=== PATIENT | female | born 1975 | race Caucasian/White ===

== ENCOUNTER 2019-02-21 04:37 | Inpatient (IN) | payer OTHER ==
[2019-02-15 14:26] VITALS: BMI 26.0
--- NOTE | 2019-02-21 07:38 | HP ---
Admitting History and Physical - Admission Chief Complaint: Prolonged menses History of Present Illness: 43 yo Para 2, LMP 02/03/19, with h/o prolonged menses associated with leiomyoma of the uterus, is pre op for abdominal hysterectomy. History Source: Patient Limitations to Obtaining History: No Limitations - Past Medical History ...LMP: 02/03/19 ...: No ...Para: 2 - Past Surgical History Past Surgical History: Yes: None - Smoking History Smoking history: Never smoked Have you smoked in the past 12 months: No - Alcohol/Substance Use Hx Alcohol Use: No History of Substance Use: reports: None - Social History History of Recent Travel: No Home Medications - Allergies Allergies/Adverse Reactions: Allergies Allergy/AdvReac Type Severity Reaction Status Date / Time No Known Drug Allergies Allergy Verified 02/21/19 06:40 - Home Medications Home Medications: Ambulatory Orders Ferrous Sulfate 325 mg PO DAILY 02/15/19 Losartan 50Mg/Hctz 12.5MG [Hyzaar -] 1 tab PO DAILY 02/15/19 Family Medical History Family History: Unremarkable Review of Systems - Review of Systems Constitutional: reports: No Symptoms Eyes: reports: No Symptoms HENT: reports: No Symptoms Neck: reports: No Symptoms Cardiovascular: reports: No Symptoms Respiratory: reports: No Symptoms Gastrointestinal: reports: No Symptoms Genitourinary: reports: No Symptoms Breasts: reports: No Symptoms Reported Musculoskeletal: reports: No Symptoms Neurological: reports: No Symptoms Psychiatric: reports: No Symptoms Pain Intensity: 0 Physical Examination Vital Signs: Vital Signs Temperature 98.0 F 02/21/19 06:36 Pulse Rate 76 02/21/19 06:36 Respiratory Rate 16 02/21/19 06:36 Blood Pressure 98/63 02/21/19 06:37 O2 Sat by Pulse Oximetry (%) 99 02/21/19 06:35 Constitutional: Yes: Well Nourished Eyes: Yes: Conjunctiva Clear HENT: Yes: Atraumatic Neck: Yes: Supple Cardiovascular: Yes: Regular Rate and Rhythm Respiratory: Yes: Regular Gastrointestinal: Yes: Normal Bowel Sounds Musculoskeletal: Yes: WNL Extremities: Yes: WNL Neurological: Yes: Alert, Oriented ...Motor Strength: WNL Psychiatric: Yes: Alert, Oriented Problem List - Problems (1) Leiomyoma of body of uterus Problems reviewed: Yes Code(s): D25.9 - LEIOMYOMA OF UTERUS, UNSPECIFIED Assessment/Plan Menorrhagia Leiomyoma of the uterus Consent signed Anesthesia to see patient
[2019-02-21] MEDS ORDERED: MIDAZOLAM HCL 2 MG/2 ML SINGLE DOSE VIAL ONE ×2 (07:41)
[2019-02-21] MEDS ORDERED: fentaNYL CITRATE 250 MCG/5 ML VIAL ONE (07:42)
[2019-02-21] MEDS ORDERED: ROCURONIUM BROMIDE 50 MG/5 ML SYRINGE ONE (07:43)
[2019-02-21] MEDS ORDERED: ceFAZolin SODIUM 1 GM VIAL IVPB ONE (07:44)
[2019-02-21] MEDS ORDERED: PROPOFOL 20 ML ONE ×2 (07:44)
[2019-02-21] MEDS ORDERED: BUPIVACAINE HCL/PF 0.5% (5 MG/ML) 30 ML VIAL IJ ONE ×3 (08:15→09:15)
[2019-02-21] MEDS ORDERED: BENZOIN TINCTURE SWABSTICK TP ONE (09:14)
[2019-02-21] MEDS ORDERED: NEOSTIGMINE METHYLSULFATE 0.5 MG/ML - 10 ML MDV ONE (09:14)
[2019-02-21] MEDS ORDERED: LIDOCAINE HCL/PF 2% SDV 5ML VIAL ONE (09:15)
[2019-02-21] MEDS ORDERED: ceFAZolin SODIUM 1 GM VIAL ONE (09:15)
[2019-02-21] MEDS ORDERED: DEXAMETHASONE SOD PHOSPHATE 4 MG/1 ML VIAL ONE (09:15)
[2019-02-21] MEDS ORDERED: KETOROLAC TROMETHAMINE 30 MG/1 ML VIAL ONE (09:15)
[2019-02-21] MEDS ORDERED: GLYCOPYRROLATE 0.2 MG/1 ML VIAL ONE (09:15)
[2019-02-21] MEDS ORDERED: IBUPROFEN 800 MG/8 ML IJ IVPB PRN ×2 (09:32→13:40)
--- NOTE | 2019-02-21 09:40 | OP ---
Operative Note - Note: Operative Date: 02/21/19 Pre-Operative Diagnosis: Menorhagia / Leiomatous uterus Operation: Subtotal hysterectomy / Bilateral salpingectomy Findings: Enlarged uterus c/w 12 weeks size Normal tubes and ovaries Post-Operative Diagnosis: Same as Pre-op Surgeon: Lorna Alfredo Marketing Sales Manager: Frank Le Anesthesia: General Specimens Removed: Uterus / Tubes Estimated Blood Loss (mls): 150
[2019-02-21] MEDS ORDERED: DEXTROSE 5%-LACTATED RINGERS 1,000 ML IV SCH (09:45)
[2019-02-21] MEDS ORDERED: PROMETHAZINE HCL 25 MG/1 ML VIAL IVPB PRN (09:46)
[2019-02-21] MEDS ORDERED: DEXAMETHASONE SOD PHOSPHATE 4 MG/1 ML VIAL IVPUSH PRN (09:46)
[2019-02-21] MEDS ORDERED: ONDANSETRON 4 MG/2 ML VIAL IVPUSH PRN ×2 (09:46)
[2019-02-21] MEDS ORDERED: HYDROmorphone *PCA* 10MG/50ML DISP.SYRIN PCA SCH (10:00)
[2019-02-21] MEDS ORDERED: LACTATED RINGERS SOLUTION 1,000 ML IV SCH (10:00)
--- NOTE | 2019-02-21 10:16 | PN ---
Progress Note (short form) - Note Progress Note: I assisted Dr. Alfredo at [facility] and BS for the entirety of the case.
[2019-02-21] MEDS ORDERED: IBUPROFEN 800 MG/8 ML IJ IVPB ONE ×2 (10:22→10:28)
[2019-02-21] MEDS ORDERED: HYDROmorphone *PCA* 10MG/50ML DISP.SYRIN ONE (11:00)
[2019-02-21] MEDS ORDERED: HYDROmorphone *PCA* 10MG/50ML DISP.SYRIN PCA ONE (11:17)
[2019-02-22] MEDS ORDERED: FLU VACCINE QUAD 60 MCG/0.5 ML (MDV 19-20) IM ONE (06:34)
--- NOTE | 2019-02-22 07:20 | PN ---
Progress Note (short form) - Note Progress Note: Anesthesia Post Op Note Pt s/p GA w/ ERP ANALYST for RICKI Pt denies n/v, tolerating po denies puritis Anderson in situ recommend d/c ERP ANALYST convert to po pain regimen VSS no apparent anesthesia complications Stephanie Posey.
--- NOTE | 2019-02-22 07:34 | PN ---
Progress Note (SOAP) - Subjective Chief Complaint: Pt with mild pain otherwise doing well - Current Medications Current Medications: Active Medications Dexamethasone Sodium Phosphate (Decadron Injection -) 4 mg IVPUSH ONCE PRN PRN Reason: NAUSEA AND/OR VOMITING Diphenhydramine HCl (Benadryl Injection -) 12.5 mg IVPUSH ONCE PRN PRN Reason: FOR ITCHING Last Admin: 02/22/19 01:30 Dose: 12.5 mg Fentanyl (Sublimaze Injection -) 50 mcg IVPUSH [id number] PRN PRN Reason: PAIN-PACU ORDER X 4 DOSES ONLY Hydromorphone HCl (Hydromorphone 10 Mg/50 Ml-Ns) 10 mg CHILD NUTRITION ASSISTANT CHILD NUTRITION ASSISTANT RITO; Protocol Stop: 02/22/19 09:59 Dextrose/Lactated Ringer's (D5-Lr -) 1,000 mls @ 125 mls/hr IV ASDIR RITO Lactated Ringer's (Lactated Ringers Solution) 1,000 mls @ 125 mls/hr IV ASDIR RITO Ibuprofen (Caldolor Injection -) 800 mg IVPB Q8H PRN PRN Reason: PAIN LEVEL 4 - 6 Influenza Virus Vaccine Quadrival (Fluarix Quad [id number] Syringe) 60 mcg IM .ONCE ONE Stop: 02/22/19 10:01 Ondansetron HCl (Zofran Injection) 4 mg IVPUSH Q6H PRN PRN Reason: NAUSEA AND/OR VOMITING Ondansetron HCl (Zofran Injection) 4 mg IVPUSH Q4H PRN PRN Reason: NAUSEA AND/OR VOMITING Promethazine HCl (Phenergan Injection -) 12.5 mg IVPB Q6H PRN PRN Reason: NAUSEA AND/OR VOMITING - Objective Vital Signs: Vital Signs Temperature 98.1 F 02/22/19 05:42 Pulse Rate 79 02/22/19 05:42 Respiratory Rate 18 02/22/19 05:42 Blood Pressure 111/58 L 02/22/19 05:42 O2 Sat by Pulse Oximetry (%) 98 02/21/19 20:00 Constitutional: Yes: Well Nourished, No Distress Gastrointestinal: Yes: WNL, Soft Wound/Incision: Yes: Dressing Dry and Intact Neurological: Yes: WNL, Alert, Oriented Problem List - Problems (1) H/O hysterectomy for benign disease Code(s): Z90.710 - ACQUIRED ABSENCE OF BOTH CERVIX AND UTERUS Assessment/Plan POD1 stable Plan Continue present management
[2019-02-22] MEDS ORDERED: FLU VACC QS2019-20(6MOS UP)/PF 60 MCG/0.5 ML SYRINGE IM ONE (10:00)
[2019-02-22] MEDS: oxyCODONE HCL 5 MG TABLET PO PRN ×3 (13:06→20:35)
[2019-02-22] MEDS: LOSARTAN 50MG/HCTZ 12.5MG 1 TAB (FP) PO SCH (15:37)
--- NOTE | 2019-02-22 17:01 | PATH ---
Surgical Pathology Report Patient Name: SANDEE OBRIEN [facility]. Rec. #: [id number] /Age/Gender: 1975 (Age: 43) / F Account: [id number] Location: [facility] OBS/REHAB AID Taken: 02/21/2019 Received: 02/21/2019 Reported: 02/22/2019 Physicians: Lorna Alfredo M.D. Specimen(s) Received A: UTERUS, PORTION OF CERVIX B: LEFT FALLOPIAN TUBE C: RIGHT FALLOPIAN TUBE Clinical History Menorrhagia, leiomyoma of uterus Final Diagnosis A. UTERUS, PORTION OF CERVIX, ABDOMINAL SUPRACERVICAL HYSTERECTOMY: 200 G UTERUS. PROLIFERATIVE ENDOMETRIUM. MYOMETRIUM WITH ADENOMYOSIS. PORTION OF ENDOCERVIX WITHOUT SIGNIFICANT PATHOLOGIC FINDINGS. B. FALLOPIAN TUBE, LEFT, SALPINGECTOMY: FALLOPIAN TUBE WITH FOCAL ENDOSALPINGOSIS (INCLUDING FIMBRIATED END AND FULL LUMINAL PORTION). C. FALLOPIAN TUBE, RIGHT, SALPINGECTOMY: FALLOPIAN TUBE WITH FOCAL ENDOSALPINGOSIS AND VASCULAR CONGESTION (INCLUDING FIMBRIATED END AND FULL LUMINAL PORTION). Electronically Signed Mela Moon M.D. Gross Description A. Received in formalin labeled "uterus and portion of cervix," is a 200 g uterus with a portion of attached cervix and no attached adnexa. The specimen measures 9.8 cm from superior to inferior, 6.6 cm from left to right and 6.3 cm from anterior to posterior. The serosa is pink-spencer and smooth. The portion of attached cervix measures 1.8 cm in length. There is no ectocervix present. The endocervix is unremarkable. The endometrial cavity measures 5.2 cm in length and 3.5 cm from cornu to cornu. The endometrium is spencer and lush, measuring up to 0.4 cm in thickness. The myometrium is spencer, firm and trabeculated, consistent with adenomyosis. The myometrium displays multiple cystic structures containing brown blood. The myometrium averages 3.2 cm in thickness. Building Trades Teacher sections are submitted in 7 cassettes as follows: 1-cervical stump margin of resection; 2-anterior and posterior cervix; 6-2-xeghcazqmkboni; 7-additional myometrium with blood-filled cysts. B. Received in formalin labeled "left fallopian tube," is a 3.5 cm in length fimbriated fallopian tube. The outer surface is spencer-pink and smooth. Sectioning reveals unremarkable lumen. Building Trades Teacher sections are submitted in 2 cassettes as follows: 1-fimbria; 2-cross sections of fallopian tube. C. Received in formalin labeled "right fallopian tube," is a 2.5 cm in length fimbriated fallopian tube. The outer surface is spencer-pink and smooth. Sectioning reveals an unremarkable lumen. Building Trades Teacher sections are submitted in 2 cassettes as follows: 1-fimbria; 2-cross sections of fallopian tube. 02/21/2019 [facility]02/21/2019
[2019-02-22] MEDS: ACETAMINOPHEN 325 MG TABLET (FP) PO PRN ×2 (17:08→20:36)
[2019-02-22] MEDS ORDERED: PCA PUMP KEY 1 EACH EACH ONE (17:20)
[2019-02-23] MEDS: oxyCODONE HCL 5 MG TABLET PO PRN ×2 (01:10→08:06)
[2019-02-23] MEDS: ACETAMINOPHEN 325 MG TABLET (FP) PO PRN ×2 (01:11→08:05)
[2019-02-23 08:48] VITALS: BP 118/71; PULSE 69; TEMP 98.2
[2019-02-23] MEDS: LOSARTAN 50MG/HCTZ 12.5MG 1 TAB (FP) PO SCH (09:44)
--- NOTE | 2019-02-23 10:06 | DS ---
Physical Examination Vital Signs: Vital Signs Temperature 98.2 F 02/23/19 08:47 Pulse Rate 69 02/23/19 08:47 Respiratory Rate 20 02/23/19 08:47 Blood Pressure 118/71 02/23/19 08:47 O2 Sat by Pulse Oximetry (%) 98 02/22/19 22:00 Constitutional: No: No Distress Eyes: Yes: Conjunctiva Clear HENT: Yes: Atraumatic Neck: Yes: Supple Respiratory: Yes: Regular Gastrointestinal: Yes: Normal Bowel Sounds Breast(s): Yes: WNL Musculoskeletal: Yes: WNL Extremities: No: Calf Tenderness Wound/Incision: Yes: Clean/Dry, Steri Strips (in place) Neurological: Yes: Alert, Oriented ...Motor Strength: WNL Psychiatric: Yes: Alert, Oriented Discharge Summary Problems reviewed: Yes Reason For Visit: MENORRHAGIA/LEIOMYOMA OF UTERUS Current Active Problems H/O hysterectomy for benign disease (Acute) Leiomyoma of body of uterus (Acute) Procedures: Principal: Abdominal hysterectomy / Bilateral salpingectomy Hospital Course: Routine post op care No blood transfusion, no additional dosage of antibiotic required. Health Concerns: Thromboembolic event Plan of Treatment: Analgesia Ambulation Wound care F/U with MD in 2 weeks Goals: Resume regular activities in 2-4 weeks Condition: Good - Instructions Diet, Activity, Other Instructions: Regular diet No driving, no lifting x 3 weeks F/U with MD in 2 weeks Disposition: HOME - Home Medications Comprehensive Discharge Medication List: Ambulatory Orders Ferrous Sulfate 325 mg PO DAILY 02/15/19 Losartan 50Mg/Hctz 12.5MG [Hyzaar -] 1 tab PO DAILY 02/15/19
--- NOTE | 2019-03-07 16:19 | OP ---
DATE OF OPERATION: 02/21/2019 PREOPERATIVE DIAGNOSIS: Menorrhagia and leiomyoma of the uterus. POSTOPERATIVE DIAGNOSIS: Menorrhagia and leiomyoma of the uterus. PROCEDURE: Subtotal hysterectomy and bilateral salpingectomy. SURGEON: Lorna Alfredo MD FRONT SIGHT ATTACHER: Frank Le MD ANESTHESIA: General. COMPLICATIONS: None. ESTIMATED BLOOD LOSS: 150 mL. DESCRIPTION OF PROCEDURE: Patient was taken to the operating room where general anesthesia was administered. Patient was then prepped and draped in proper sterile fashion. A Pfannenstiel skin incision was made approximately 2 cm above the pubic symphysis and extended sharply to the rectus fascia. The fascia was then incised bilaterally with the Bovie cautery and the muscles of the anterior abdominal wall were then in the midline by sharp and blunt dissection. The peritoneum was grasped between 2 pickups, elevated, and entered sharply with the Metzenbaum scissors. The pelvis was then examined, and the uterus was exteriorized. The bowel a packed with moist laparotomy sponges. Two pean clamps were placed over the cornua and used for retraction. The round ligaments on both sides were clamped using the LigaSure, burned, and cut. The anterior lip of the broad ligament was then incised along the bladder reflection through the midline from both sides. The bladder was then gently dissected off the lower uterine segment and cervix with a sponge stick. Then the utero-ovarian ligament on both sides were then clamped using the LigaSure device , burned, and cut. Hemostasis was visualized. The uterine arteries were skeletonized bilaterally, clamped, and cut using the LigaSure device. Again, hemostasis was assured. Then the uterosacral ligaments were then clamped and cut. The uterus was then amputated off the cervix using the Bovie cautery. The cervical stump was then closed with pdooiq-[id number]-fchoa stitches of 0 Vicryl. Again hemostasis was obtained. Both tubes were then clamped with the ligasure device and cut. Homostasis was assured. The pelvis was then copiously irrigated with warm, normal saline. All laparotomy sponges and instruments were removed from the abdomen, and Interceed was placed over the cervical stump. First the peritoneum was closed using 2-0 Biosyn. The fascia was reapproximated using 0 Vicryl in a running fashion, and the skin was closed in a subcuticular fashion using 3-0 Vicryl. Patient tolerated procedure well. Patient was then taken to PACU in stable condition. PATHOLOGY: Uterus and tubes. Alina MATSON/[id number] MTDD
== END 2019-02-23 12:25 | disposition home or self-care (01) | DRG 519 ==
LOC: JSAMEDAYSX 04:37 → J3W 12:40
PROVIDERS: ADMIT Obstetrics & Gynecology; ATTEND Obstetrics & Gynecology
PROC: 0UT70ZZ Resection of Bilateral Fallopian Tubes, Open Approach (ICD-10-PCS; 2019-02-21)
PROC: 0UT90ZL Resection of Uterus, Supracervical, Open Approach (ICD-10-PCS; principal; 2019-02-21 08:13)
DX: D25.9 Leiomyoma of uterus, unspecified (principal); N92.0 Excessive and frequent menstruation with regular cycle
CPT/HCPCS: 84703; 86850; 86900; 86901; 88302-TC; 88305-TC; 90686; 94010; 94760

== ENCOUNTER 2019-03-27 12:10 | Inpatient (IN) | payer OTHER ==
[2019-03-27] MEDS ORDERED: KETOROLAC TROMETHAMINE 30 MG/1 ML VIAL IVPUSH ONE (12:46)
[2019-03-27] MEDS ORDERED: ONDANSETRON 4 MG/2 ML VIAL IVPUSH ONE (12:46)
[2019-03-27] MEDS ORDERED: KETOROLAC TROMETHAMINE 30 MG/1 ML VIAL ONE (13:18)
[2019-03-27] MEDS ORDERED: ONDANSETRON 4 MG/2 ML VIAL ONE (13:19)
[2019-03-27] MEDS ORDERED: SODIUM CHLORIDE 1,000 ML IV STA ×2 (13:23→17:26)
[2019-03-27 13:35] LABS: BASO % 0.5 % (0-2.0); EOS % 0.2 % (0-4.5); HEMOGLOBIN 13.8 GM/dL (10.7-15.3); LYMPH % 8.1 % (8-40); MCH 30.6 pg (25.7-33.7); MCHC 32.8 g/dl (32.0-36.0); MEAN CELL VOLUME 93.3 fl (80-96); MEAN PLT VOLUME 9.3 fl (7.5-11.1); MONO % 3.8 % (3.8-10.2); NEUT % 87.4 % (42.8-82.8); PLATELET COUNT 253 K/MM3 (134-434); RDW 12.8 % (11.6-15.6); WHITE BLOOD COUNT 18.1 K/mm3 (4.0-10.0)
[2019-03-27 13:49] LABS: EPI CELLS 1.8 /HPF (0-5/HPF); HYALINE CASTS 23 /lpf (0-8); URINE APPEARANCE CLEAR; URINE BACTERIA 196.7 /hpf (NEGATIVE); URINE BILIRUBIN NEGATIVE (NEGATIVE); URINE COLOR YELLOW; URINE GLUCOSE (UA) NEGATIVE (NEGATIVE); URINE KETONE NEGATIVE (NEGATIVE); URINE LEUK ESTERASE 1+ (NEGATIVE); URINE NITRITE NEGATIVE (NEGATIVE); URINE PROTEIN 2+ (NEGATIVE); URINE RBC 11 /hpf (0-4); URINE UROBILINOGEN 0.2 mg/dL (0.2-1.0); URINE WBC 33 /hpf (0-5)
[2019-03-27 13:54] LABS: BILIRUBIN,TOTAL 0.2 mg/dL (0.2-1); CALCIUM 9.6 mg/dL (8.5-10.1); CREATININE 0.8 mg/dL (0.55-1.3); POTASSIUM 3.8 mmol/L (3.5-5.1); TOT PROT 8.4 g/dl (6.4-8.2)
--- NOTE | 2019-03-27 14:27 | PDOC ---
History of Present Illness - General History Source: Patient Exam Limitations: No Limitations - History of Present Illness Travel History: No Initial Comments: 03/27/19 15:07 43-year-old female with past medical history of hysterectomy done on February 21. Patient with urinary discomfort and frequency. Patient also complaining of mild generalized weakness and lower abdominal cramping greater to the right suprapubic right lower quadrant along with right flank and right CVA tenderness. Patient denies history of gallstones renal colic, recent travel, recent illness. Timing/Duration: reports: constant Quality: reports: moderate Abdominal Pain Onset Location: reports: RLQ, suprapubic, flank Pain Radiation: reports: back Activities at Onset: reports: none Aggravating Factors: improves with: None Alleviating Factors: improves with: None <Sujata Buckley - Last Filed: 03/30/19 14:16> <Osiris Nicholas - Last Filed: 04/04/19 21:44> - General Chief Complaint: Pain Stated Complaint: LOWER STOMACH/BACK PAIN Time Seen by Provider: 03/27/19 12:44 Past History - Travel Traveled outside of the country in the last 30 days: No Close contact w/someone who was outside of country & ill: No - Past Medical History Anemia: Yes Asthma: No Cancer: No Cardiac Disorders: No CVA: No COPD: No CHF: No Dementia: No Diabetes: No GI Disorders: No Disorders: No HTN: Yes (? not on meds) Hypercholesterolemia: No Liver Disease: No Seizures: No Thyroid Disease: No - Surgical History Abdominal Surgery: No Appendectomy: No Cardiac Surgery: No Cholecystectomy: No Lung Surgery: No Neurologic Surgery: No Orthopedic Surgery: No - Psycho Social/Smoking Cessation Hx Smoking History: Never smoked Have you smoked in the past 12 months: No Hx Alcohol Use: No Drug/Substance Use Hx: No Substance Use Type: None Hx Substance Use Treatment: No Patient Lives Alone: No Lives with/in: spouse/SO <Sujata Buckley - Last Filed: 03/30/19 14:16> <Osiris Nicholas - Last Filed: 04/04/19 21:44> - Past Medical History Allergies/Adverse Reactions: Allergies Allergy/AdvReac Type Severity Reaction Status Date / Time No Known Drug Allergies Allergy Verified 03/27/19 12:22 Home Medications: Ambulatory Orders Losartan 50Mg/Hctz 12.5MG [Hyzaar -] 1 tab PO DAILY 02/15/19 Cephalexin [Keflex] 500 mg PO TID #10 capsule 04/03/19 Review of Systems - Review of Systems Able to Perform ROS?: Yes Constitutional: No: Symptoms Reported HEENTM: No: Symptoms Reported Respiratory: No: Symptoms reported ABD/GI: Yes: Nausea, Vomiting, Abdominal cramping. No: Poor Appetite, Poor Fluid Intake : Yes: Dysuria, Urgency Musculoskeletal: Yes: Back Pain Integumentary: No: Symptoms Reported Neurological: No: Symptoms reported Endocrine: No: Symptoms Reported Hematologic/Lymphatic: No: Symptoms Reported <Sujata Buckley - Last Filed: 03/30/19 14:16> *Physical Exam - Vital Signs Last Vital Signs Temp Pulse Resp BP Pulse Ox 97.2 F L 69 18 124/73 100 03/27/19 12:23 03/27/19 12:23 03/27/19 12:23 03/27/19 12:23 03/27/19 12:23 - Physical Exam General Appearance: Yes: Nourished, Appropriately Dressed. No: Apparent Distress HEENT: positive: EOMI, MERCEDEZ, TMs Normal, Pharynx Normal. negative: Pale Conjunctivae Neck: positive: Supple Respiratory/Chest: positive: Lungs Clear, Normal Breath Sounds. negative: Respiratory Distress Cardiovascular: positive: Regular Rhythm, Regular Rate. negative: Murmur Gastrointestinal/Abdominal: positive: Soft, Tenderness (Right suprapubic right lower quadrant right flank) Musculoskeletal: positive: CVA Tenderness (R) (mild) Extremity: positive: Normal Inspection Integumentary: positive: Normal Color, Warm, Moist Neurologic: positive: Motor Strength 5/5 (ambulatory) <Sujata Buckley - Last Filed: 03/30/19 14:16> - Vital Signs Last Vital Signs Temp Pulse Resp BP Pulse Ox 98.0 F 66 18 116/67 98 04/03/19 17:38 04/03/19 17:38 04/03/19 17:38 04/03/19 17:38 04/03/19 09:00 <Osiris Nicholas - Last Filed: 04/04/19 21:44> ED Treatment Course - LABORATORY CBC & Chemistry Diagram: 03/30/19 06:20 03/30/19 06:20 - ADDITIONAL ORDERS Additional order review: Laboratory Results 03/27/19 03/27/19 03/27/19 13:20 13:20 13:15 Sodium 138 Potassium 3.8 Chloride 105 Carbon Dioxide 25 Anion Gap 8 BUN 17.0 Creatinine 0.8 Est GFR (CKD-EPI)AfAm 104.65 Est GFR (CKD-EPI)NonAf 90.30 Random Glucose 134 H Calcium 9.6 Total Bilirubin 0.2 AST 31 ALT 50 Alkaline Phosphatase 101 Total Protein 8.4 H Albumin 4.0 Urine Color Yellow Urine Appearance Clear Urine pH 5.0 Ur Specific [place] 1.025 Urine Protein 2+ H Urine Glucose (UA) Negative Urine Ketones Negative Urine Blood Trace Urine Nitrite Negative Urine Bilirubin Negative Urine Urobilinogen 0.2 Ur Leukocyte Esterase 1+ H Urine WBC (Auto) 33 Urine RBC (Auto) 11 Urine Casts (Auto) 23 U Epithel Cells (Auto) 1.8 Urine Bacteria (Auto) 196.7 Urine HCG, Qual Negative 03/27/19 13:15 RBC 4.50 MCV 93.3 MCHC 32.8 RDW 12.8 D MPV 9.3 Neutrophils % 87.4 H D Lymphocytes % 8.1 D Monocytes % 3.8 Eosinophils % 0.2 D Basophils % 0.5 - RADIOLOGY Radiology Studies Ordered: Category Date Time Status PELVIC / BLADDER US [US] Stat Ultrasound 03/27/19 12:45 Ordered - Medications Given in the ED: ED Medications Discontinued Medications Generic Name Dose Route Start Last Admin Trade Name Freq PRN Reason Stop Dose Admin Sodium Chloride 1,000 mls @ 1,000 mls/hr 03/27/19 13:23 03/27/19 13:25 Normal Saline - IV 03/27/19 14:22 1,000 mls/hr ASDIR STA Administration Ketorolac Tromethamine 30 mg 03/27/19 12:46 03/27/19 13:19 Toradol Injection - IVPUSH 03/27/19 12:47 30 mg ONCE ONE Administration Ondansetron HCl 4 mg 03/27/19 12:46 03/27/19 13:19 Zofran Injection IVPUSH 03/27/19 12:47 4 mg ONCE ONE Administration <Sujata Buckley - Last Filed: 03/30/19 14:16> - LABORATORY CBC & Chemistry Diagram: 04/01/19 18:42 04/02/19 06:48 - ADDITIONAL ORDERS Additional order review: 03/27/19 17:30 Blood Culture - Final Blood - Peripheral Venous Non Lactose Fermenting Gnb 03/27/19 13:20 Urine Culture - Final Urine - Urine Clean Catch Escherichia Coli Escherichia Coli#2 03/27/19 17:30 Blood Culture - Final Blood - Peripheral Venous Escherichia Coli 03/27/19 13:15 RBC 4.50 MCV 93.3 MCHC 32.8 RDW 12.8 D MPV 9.3 Neutrophils % 87.4 H D Lymphocytes % 8.1 D Monocytes % 3.8 Eosinophils % 0.2 D Basophils % 0.5 - Medications Given in the ED: ED Medications Discontinued Medications Generic Name Dose Route Start Last Admin Trade Name Freq PRN Reason Stop Dose Admin Acetaminophen 1,000 mg 03/27/19 17:26 03/27/19 18:03 Ofirmev Injection - IVPB 03/27/19 17:27 1,000 mg ONCE ONE Administration Acetaminophen 1,000 mg 03/27/19 22:00 03/29/19 09:56 Ofirmev Injection - IVPB 1,000 mg Q6H PRN Administration PAIN LEVEL 4 - 6 Acetaminophen 650 mg 03/29/19 16:18 04/02/19 17:56 Tylenol - PO 650 mg Q8H PRN Administration PAIN LEVEL 1-5 Heparin Sodium (Porcine) 5,000 unit 03/28/19 06:00 04/03/19 15:19 Heparin - SQ Not Given TID RITO Sodium Chloride 1,000 mls @ 1,000 mls/hr 03/27/19 13:23 03/27/19 13:25 Normal Saline - IV 03/27/19 14:22 1,000 mls/hr ASDIR STA Administration Sodium Chloride 1,000 mls @ 1,000 mls/hr 03/27/19 17:26 03/27/19 18:03 Normal Saline - IV 03/27/19 18:25 1,000 mls/hr ASDIR STA Administration Ceftriaxone Sodium 1 gm/ 50 mls @ 100 mls/hr 03/27/19 18:07 03/27/19 18:49 Dextrose IVPB 03/27/19 18:36 100 mls/hr ONCE ONE Administration Sodium Chloride 1,000 mls @ 100 mls/hr 03/27/19 22:00 03/27/19 22:30 Normal Saline - IV 100 mls/hr ASDIR RITO Administration Meropenem 1 gm/ Dextrose 100 mls @ 200 mls/hr 03/27/19 22:51 03/28/19 02:16 IVPB 03/27/19 23:20 200 mls/hr ONCE ONE Administration Sodium Chloride 500 mls @ 500 mls/hr 03/28/19 09:00 03/28/19 10:12 Normal Saline - IV 03/28/19 09:59 500 mls/hr ASDIR STA Administration Dextrose/Lactated Ringer's 1,000 mls @ 125 mls/hr 03/28/19 09:15 03/30/19 11: 38 D5-Lr - IV 125 mls/hr ASDIR RITO Administration Meropenem 1 gm/ Dextrose 100 mls @ 200 mls/hr 03/28/19 11:00 03/28/19 12:56 IVPB 03/28/19 11:29 200 mls/hr ONCE ONE Administration Piperacillin Sod/Tazobactam 100 mls @ 200 mls/hr 03/28/19 18:00 04/02/19 11: 00 Sod 4.5 gm/ Dextrose IVPB 200 mls/hr Q8H-IV RITO Administration Protocol Lactated Ringer's 1,000 mls @ 125 mls/hr 03/28/19 15:30 03/31/19 11:53 Lactated Ringers Solution IV Not Given ASDIR RITO Dextrose/Sodium Chloride 1,000 mls @ 75 mls/hr 03/30/19 19:45 04/02/19 21:36 D5-1/2ns - IV 75 mls/hr ASDIR RITO Administration Cefazolin Sodium/Dextrose 2 gm in 50 mls @ 100 mls/hr 04/02/19 18:00 17:23 Ancef 2 Gm Premixed Ivpb - IVPB 100 mls/hr Q8H-IV RITO Administration Ibuprofen 600 mg 03/28/19 13:00 03/28/19 13:29 Caldolor Injection - IVPB 03/28/19 13:01 600 mg ONCE ONE Administration Ketorolac Tromethamine 30 mg 03/27/19 12:46 03/27/19 13:19 Toradol Injection - IVPUSH 03/27/19 12:47 30 mg ONCE ONE Administration Ketorolac Tromethamine 15 mg 04/01/19 18:35 04/01/19 18:42 Toradol Injection - IVPUSH 04/01/19 18:36 15 mg ONCE ONE Administration Magnesium Sulfate 1 gm 04/01/19 18:45 04/01/19 18:42 Magnesium Sulfate IVPB 04/01/19 18:46 1 gm ONCE ONE Administration Ondansetron HCl 4 mg 03/27/19 12:46 03/27/19 13:19 Zofran Injection IVPUSH 03/27/19 12:47 4 mg ONCE ONE Administration Ondansetron HCl 4 mg 03/27/19 21:59 03/31/19 09:14 Zofran - PO 4 mg Q6H PRN Administration NAUSEA Ondansetron HCl 4 mg 03/28/19 15:25 03/31/19 14:09 Zofran Injection IVPUSH 4 mg Q6H PRN Administration NAUSEA AND/OR VOMITING Potassium Chloride 40 meq 03/28/19 08:18 03/28/19 11:26 K-Dur - PO 03/28/19 08:19 40 meq ONCE ONE Administration Potassium Chloride 40 meq 03/30/19 19:33 03/30/19 21:13 K-Dur - PO 03/30/19 19:34 40 meq ONCE ONE Administration Potassium Chloride 40 meq 03/31/19 15:00 03/31/19 15:42 K-Dur - PO 03/31/19 15:01 40 meq ONCE ONE Administration Tamsulosin HCl 0.4 mg 03/27/19 20:52 03/27/19 21:45 Flomax - PO 03/27/19 20:53 0.4 mg ONCE ONE Administration Vancomycin HCl 1,000 mg 03/27/19 23:15 03/28/19 11:30 Vancomycin (Pre-Docked) IVPB 03/28/19 11:16 1,000 mg Q12H RITO Administration Protocol <Osiris Nicholas - Last Filed: 04/04/19 21:44> Medical Decision Making - Medical Decision Making 03/27/19 12:28 Chief complaint: Nausea vomiting lower abdominal pain urinary frequency and retention patient status post hysterectomy About 6 weeks ago Exam: Patient with right lower quadrant right suprapubic tenderness along with right CVA tenderness. Plan: Patient order for labs, urine, IV fluids, antiemetics Toradol and ultrasound 03/27/19 14:30 Laboratory Tests 03/27/19 03/27/19 03/27/19 13:15 13:15 13:20 WBC 18.1 H Hgb 13.8 Hct 42.0 Absolute Neuts (auto) 15.8 H Sodium 138 Potassium 3.8 Chloride 105 Carbon Dioxide 25 Anion Gap 8 Creatinine 0.8 Est GFR (CKD-EPI)AfAm 104.65 Est GFR (CKD-EPI)NonAf 90.30 Random Glucose 134 H Calcium 9.6 Total Bilirubin 0.2 AST 31 ALT 50 Alkaline Phosphatase 101 Total Protein 8.4 H Albumin 4.0 Urine Protein Urine Bilirubin Ur Leukocyte Esterase Urine WBC (Auto) Urine HCG, Qual Negative 03/27/19 13:20 WBC Hgb Hct Absolute Neuts (auto) Sodium Potassium Chloride Carbon Dioxide Anion Gap Creatinine Est GFR (CKD-EPI)AfAm Est GFR (CKD-EPI)NonAf Random Glucose Calcium Total Bilirubin AST ALT Alkaline Phosphatase Total Protein Albumin Urine Protein 2+ H Urine Bilirubin Negative Ur Leukocyte Esterase 1+ H Urine WBC (Auto) 33 Urine HCG, Qual Lipase added patient currently at ultrasound. Patient states feeling better patient also ordered for abdominal CT. 03/27/19 15:12 Laboratory Tests 03/27/19 13:15 Lipase 83 03/27/19 18:05 Patient revitalized and had a temperature of 102.6. 03/27/19 18:06 Laboratory Tests 03/27/19 03/27/19 03/27/19 13:15 13:15 13:20 WBC 18.1 H Hgb 13.8 Hct 42.0 Absolute Neuts (auto) 15.8 H Neutrophils % 87.4 H D Lactic Acid Total Protein 8.4 H Lipase 83 Urine Protein Ur Leukocyte Esterase Urine WBC (Auto) Urine RBC (Auto) Urine HCG, Qual Negative 03/27/19 03/27/19 13:20 17:30 WBC Hgb Hct Absolute Neuts (auto) Neutrophils % Lactic Acid Pending Total Protein Lipase Urine Protein 2+ H Ur Leukocyte Esterase 1+ H Urine WBC (Auto) 33 Urine RBC (Auto) 11 Urine HCG, Qual Blood cultures lactic acid and IV ceftriaxone ordered since patient has no previous urine culture on file. Patient also ordered for IV Tylenol for fever and second liter of fluid 03/27/19 18:13 Ultrasound inconclusive. Patient went for abdominal CT with contrast 03/27/19 18:40 CT of the abdomen shows a 2 mm nonobstructing stone within the UVJ with mild to moderate hydronephrosis. Mild tissue stranding is noted secondary to acute obstruction. patient also noted with a right adnexal mass recommending a nonemergent ultrasound. 03/27/19 18:43 Laboratory Tests 03/27/19 17:30 Lactic Acid 2.6 H* <Sujata Buckley - Last Filed: 03/30/19 14:16> - Medical Decision Making The patient was seen and evaluated in conjunction with midlevel provider under my direct supervision, ancillary studies were reviewed. I agree with the plan as outlined with JAZZ Buckley. HPI, workup/dispo as outlined. VS reviewed. found to have mild to mod hydro with small 2mm stone at UVJ. abx ordered, leukocytosis, sepsis, abx IV ceftriaxone. f/u cultures admit 04/04/19 21:43 04/04/19 21:44 <Osiris Nicholas - Last Filed: 04/04/19 21:44> Discharge - Discharge Information Problems reviewed: Yes - Admission Yes <Sujata Buckley - Last Filed: 03/30/19 14:16> - Admission Yes <Osiris Nicholas - Last Filed: 04/04/19 21:44> - Discharge Information Clinical Impression/Diagnosis: Kidney stone Sepsis Qualifiers: Sepsis type: sepsis due to unspecified organism Sepsis acute organ dysfunction status: unspecified Qualified Code(s): A41.9 - Sepsis, unspecified organism UTI (urinary tract infection) Qualifiers: Urinary tract infection type: acute cystitis Hematuria presence: without hematuria Qualified Code(s): N30.00 - Acute cystitis without hematuria Condition: Stable
[2019-03-27] MEDS ORDERED: ACETAMINOPHEN 1000 MG/100 ML VIAL (NON FORMULARY) IVPB ONE (17:26)
[2019-03-27] MEDS ORDERED: ACETAMINOPHEN INJECTION 100 ML IVPB ONE (17:52)
[2019-03-27] MEDS ORDERED: CEFTRIAXONE 1 GM in DEXTROSE 5%-WATER - 50 ML IVPB ONE (18:07)
[2019-03-27] MEDS ORDERED: CEFTRIAXONE 1 GM/50 ML BAG ONE (18:33)
--- NOTE | 2019-03-27 19:15 | PDOC ---
*Physical Exam - Vital Signs Last Vital Signs Temp Pulse Resp BP Pulse Ox 101.2 F H 120 H 18 128/75 98 03/27/19 18:50 03/27/19 17:39 03/27/19 17:39 03/27/19 17:39 03/27/19 17:39 ED Treatment Course - LABORATORY CBC & Chemistry Diagram: 03/27/19 13:15 03/27/19 13:15 - ADDITIONAL ORDERS Additional order review: Laboratory Results 03/27/19 03/27/19 03/27/19 17:30 13:20 13:20 Sodium Potassium Chloride Carbon Dioxide Anion Gap BUN Creatinine Est GFR (CKD-EPI)AfAm Est GFR (CKD-EPI)NonAf Random Glucose Lactic Acid 2.6 H* Calcium Total Bilirubin AST ALT Alkaline Phosphatase Total Protein Albumin Lipase Urine Color Yellow Urine Appearance Clear Urine pH 5.0 Ur Specific [place] 1.025 Urine Protein 2+ H Urine Glucose (UA) Negative Urine Ketones Negative Urine Blood Trace Urine Nitrite Negative Urine Bilirubin Negative Urine Urobilinogen 0.2 Ur Leukocyte Esterase 1+ H Urine WBC (Auto) 33 Urine RBC (Auto) 11 Urine Casts (Auto) 23 U Epithel Cells (Auto) 1.8 Urine Bacteria (Auto) 196.7 Urine HCG, Qual Negative 03/27/19 13:15 Sodium 138 Potassium 3.8 Chloride 105 Carbon Dioxide 25 Anion Gap 8 BUN 17.0 Creatinine 0.8 Est GFR (CKD-EPI)AfAm 104.65 Est GFR (CKD-EPI)NonAf 90.30 Random Glucose 134 H Lactic Acid Calcium 9.6 Total Bilirubin 0.2 AST 31 ALT 50 Alkaline Phosphatase 101 Total Protein 8.4 H Albumin 4.0 Lipase 83 Urine Color Urine Appearance Urine pH Ur Specific [place] Urine Protein Urine Glucose (UA) Urine Ketones Urine Blood Urine Nitrite Urine Bilirubin Urine Urobilinogen Ur Leukocyte Esterase Urine WBC (Auto) Urine RBC (Auto) Urine Casts (Auto) U Epithel Cells (Auto) Urine Bacteria (Auto) Urine HCG, Qual 03/27/19 13:15 RBC 4.50 MCV 93.3 MCHC 32.8 RDW 12.8 D MPV 9.3 Neutrophils % 87.4 H D Lymphocytes % 8.1 D Monocytes % 3.8 Eosinophils % 0.2 D Basophils % 0.5 - Medications Given in the ED: ED Medications Discontinued Medications Generic Name Dose Route Start Last Admin Trade Name Freq PRN Reason Stop Dose Admin Acetaminophen 1,000 mg 03/27/19 17:26 03/27/19 18:03 Ofirmev Injection - IVPB 03/27/19 17:27 1,000 mg ONCE ONE Administration Sodium Chloride 1,000 mls @ 1,000 mls/hr 03/27/19 13:23 03/27/19 13:25 Normal Saline - IV 03/27/19 14:22 1,000 mls/hr ASDIR STA Administration Sodium Chloride 1,000 mls @ 1,000 mls/hr 03/27/19 17:26 03/27/19 18:03 Normal Saline - IV 03/27/19 18:25 1,000 mls/hr ASDIR STA Administration Ceftriaxone Sodium 1 gm/ 50 mls @ 100 mls/hr 03/27/19 18:07 03/27/19 18:49 Dextrose IVPB 03/27/19 18:36 100 mls/hr ONCE ONE Administration Ketorolac Tromethamine 30 mg 03/27/19 12:46 03/27/19 13:19 Toradol Injection - IVPUSH 03/27/19 12:47 30 mg ONCE ONE Administration Ondansetron HCl 4 mg 03/27/19 12:46 03/27/19 13:19 Zofran Injection IVPUSH 03/27/19 12:47 4 mg ONCE ONE Administration Medical Decision Making - Medical Decision Making 03/27/19 19:40 Dr. Finn chong telephone order clerk room service paged for urology consult. 03/27/19 20:53 Dr. jorgensen recommends flomax. admission evaluation in the AM. patient admitted the hospitalist service. admitted under Dr. beaver Discharge - Discharge Information Problems reviewed: Yes Clinical Impression/Diagnosis: Kidney stone Sepsis Qualifiers: Sepsis type: sepsis due to unspecified organism Sepsis acute organ dysfunction status: unspecified Qualified Code(s): A41.9 - Sepsis, unspecified organism UTI (urinary tract infection) Qualifiers: Urinary tract infection type: acute cystitis Hematuria presence: without hematuria Qualified Code(s): N30.00 - Acute cystitis without hematuria - Admission Yes - Follow up/Referral - Patient Discharge Instructions - Post Discharge Activity
--- NOTE | 2019-03-27 19:19 | PN ---
Teaching Attending Note Name of Resident: Elin Espinoza ATTENDING PHYSICIAN STATEMENT I saw and evaluated the patient. I reviewed the resident's note and discussed the case with the resident. I agree with the resident's findings and plan as documented. SUBJECTIVE: Patient 43 year old woman with a PMH of HTN and Hysterectomy (done on February 21) presents with complaints of urinary discomfort, frequency, mild generalized weakness and lower abdominal cramping. The abdominal cramping is greater on the right suprapubic/right lower quadrant along with right flank and right CVA. Patient denies history of gallstones, renal colic, recent travel or sick contacts. Denies fever, chills, vomiting, headache, diarrhea, chest pain or SOB. Denies tobacco, alcohol or illicit drug use. OBJECTIVE: Alert Vital Signs Period Temp Pulse Resp BP Sys/Swan Pulse Ox Last 24 Hr 97.2 F-102.6 F 69-120 18-20 100-128/49-75 98-100 HEENT: No Jaundice, eye redness or discharge, PERRLA, EOMI. Normocephalic, atraumatic. External ears are normal and hearing is grossly intact. No nasal discharge. Neck: Supple, nontender. No palpable adenopathy or thyromegaly. No JVD Chest: Good effort. Clear to auscultation and percussion. Heart: Regular. No S3, rub or murmur Abdomen: Not distended, soft, left CVAT and suprapubic tenderness; no HSM. No rebound or guarding. Normal bowel sounds. Ext: Peripheral pulses intact. No leg edema. Skin: Warm and dry. No petechiae, rash or ecchymosis. Neuro: Alert. Oriented x3. CN 2-12 grossly intact. Sensation grossly intact in all four extremities and DTR are symmetric. Psych: Appropriate mood and affect. Good insight. Home Medications Medication Instructions Recorded Losartan 50Mg/Hctz 12.5MG [Hyzaar 1 tab PO DAILY 02/15/19 -] Current Medications Generic Name Dose Route Start Last Admin Trade Name Freq PRN Reason Stop Dose Admin Acetaminophen 1,000 mg 03/27/19 22:00 03/28/19 00:30 Ofirmev Injection - IVPB 1,000 mg Q6H PRN Administration PAIN LEVEL 4 - 6 HCTZ/Losartan Potassium 1 tab 03/28/19 10:00 Hyzaar - PO DAILY RITO Heparin Sodium (Porcine) 5,000 unit 03/28/19 06:00 Heparin - SQ TID [facility] Sodium Chloride 1,000 mls @ 100 mls/hr 03/27/19 22:00 03/27/19 22:30 Normal Saline - IV 100 mls/hr ASDIR RITO Administration Ondansetron HCl 4 mg 03/27/19 21:59 Zofran - PO Q6H PRN NAUSEA Vancomycin HCl 1,000 mg 03/28/19 23:00 Vancomycin (Pre-Docked) IVPB Q12H RITO Protocol Vancomycin HCl 1,000 mg 03/27/19 23:15 Vancomycin (Pre-Docked) IVPB 03/28/19 11:16 Q12H RITO Protocol Abnormal Lab Results 03/27/19 03/27/19 03/27/19 13:15 13:15 13:20 WBC 18.1 H Absolute Neuts (auto) 15.8 H Neutrophils % 87.4 H D Random Glucose 134 H Lactic Acid Total Protein 8.4 H Urine Protein 2+ H Ur Leukocyte Esterase 1+ H 03/27/19 17:30 WBC Absolute Neuts (auto) Neutrophils % Random Glucose Lactic Acid 2.6 H* Total Protein Urine Protein Ur Leukocyte Esterase ASSESSMENT AND PLAN: 1. Sepsis due to UTI/Kidney stones - CT of the abdomen showed a 2 mm right nonobstructing stone within the UVJ with mild to moderate hydronephrosis. Mild tissue stranding is noted secondary to acute obstruction. Patient also noted with a right adnexal mass recommending a nonemergent ultrasound. Sepsis workup done. Will treat with IV vancomycin and meropenem, IV NS according to sepsis protocol, flomax and toradol for pain. EKG is NSR with no significant changes. HbA1c is pending. Consult Urology. Will strain her urine and refer for outpatient work up to search for stone disease risk factor. Will continue comprehensive care for all of patients comorbid conditions. 2. Obesity Counseled on the risks associated with obesity. Will provide patient all the necessary assistance, counseling and positive reinforcement to facilitate weight loss. Consult manager balance. 3. Hypertension - Restart suitable outpatient antihypertensive drugs when clinically appropriate. Revise regimen to ensure uynib-dey-gywit excellent BP control and adolescent counselor patient on the injurious effects of uncontrolled hypertension. Nonpharmacologic measures to control hypertension like weight loss , salt restriction and exercise discussed. Importance of adherence to treatment regimen and attainment of normotension emphasized. 4. DVT prophylaxis - Lovenox 40 mg SQ q 24 hours. 5. Advance directives - Full code
--- NOTE | 2019-03-27 19:52 | HP ---
CHIEF COMPLAINT: Urinary symptoms PCP: Dr. Bravo Almendarez HISTORY OF PRESENT ILLNESS: Patient is a 43 year old female with PMH of HTN and s/p hysterectomy on who presents with urinary discomfort since this morning. Pt awoke around 6am with fever, chills, dysuria, urgency, and incontinence. She denies any hematuria. Endorses R flank pain and colicky suprapubic pain. She also reports nausea and nonbilious vomiting several times. Did not take any medications for these symptoms. She denies a history of any stones or UTIs. 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 Surgery went well without any post-op complications. Recent Travel: denies PAST MEDICAL HISTORY: As per HPI PAST SURGICAL HISTORY: Hysterectomy Breast I&D Social History: Smoking: denies Alcohol: denies Drugs: denies Allergies No Known Drug Allergies Allergy (Verified 03/27/19 12:22) HOME MEDICATIONS: Home Medications Medication Instructions Recorded Losartan 50Mg/Hctz 12.5MG [Hyzaar 1 tab PO DAILY 02/15/19 -] REVIEW OF SYSTEMS CONSTITUTIONAL: fever, chills Absent: diaphoresis, generalized weakness, malaise, loss of appetite, weight change HEENT: Absent: rhinorrhea, nasal congestion, throat pain, throat swelling, difficulty swallowing, mouth swelling, ear pain, eye pain, visual changes CARDIOVASCULAR: Absent: chest pain, syncope, palpitations, irregular heart rate, lightheadedness , peripheral edema RESPIRATORY: Absent: cough, shortness of breath, dyspnea with exertion, orthopnea, wheezing, stridor, hemoptysis GASTROINTESTINAL: abdominal pain, nausea, vomiting Absent: diarrhea, constipation, melena, hematochezia GENITOURINARY: dysuria, frequency, urgency, flank pain Absent: hesitancy, hematuria, genital pain MUSCULOSKELETAL: Absent: myalgia, arthralgia, joint swelling, back pain, neck pain SKIN: Absent: rash, itching, pallor HEMATOLOGIC/IMMUNOLOGIC: Absent: easy bleeding, easy bruising, lymphadenopathy, frequent infections ENDOCRINE: Absent: unexplained weight gain, unexplained weight loss, heat intolerance, cold intolerance NEUROLOGIC: Absent: headache, focal weakness or paresthesias, dizziness, unsteady gait, seizure, mental status changes, bladder or bowel incontinence PSYCHIATRIC: Absent: anxiety, depression, suicidal or homicidal ideation, hallucinations. PHYSICAL EXAMINATION Vital Signs - 24 hr 03/27/19 03/27/19 03/27/19 12:23 17:39 18:50 Temperature 97.2 F L 102.6 F H 101.2 F H Pulse Rate 69 Pulse Rate [ 120 H Radial] Respiratory 18 18 Rate Blood Pressure 124/73 Blood Pressure 128/75 [Right Arm] O2 Sat by Pulse 100 98 Oximetry (%) GENERAL: Awake, alert, and fully oriented, in no acute distress. HEAD: Normal with no signs of trauma. EYES: Pupils equal, round and reactive to light, extraocular movements intact, sclera anicteric, conjunctiva clear. No lid lag. EARS, NOSE, THROAT: Ears normal, nares patent, oropharynx clear without exudates. Moist mucous membranes. NECK: Normal range of motion, supple without lymphadenopathy, JVD, or masses. LUNGS: Breath sounds equal, clear to auscultation bilaterally. No wheezes, and no crackles. No accessory muscle use. HEART: Tachycardic and rhythm, normal S1 and S2 without murmur, rub or gallop. ABDOMEN: Soft, suprapubic tenderness, R flank tenderness, not distended, normoactive bowel sounds, no guarding, no rebound, no masses. No hepatomegaly or splenomegaly. MUSCULOSKELETAL: Normal range of motion at all joints. No bony deformities or tenderness. R CVA tenderness. UPPER EXTREMITIES: 2+ pulses, warm, well-perfused. No cyanosis. No clubbing. No peripheral edema. LOWER EXTREMITIES: 2+ pulses, warm, well-perfused. No calf tenderness. No peripheral edema. NEUROLOGICAL: Cranial nerves II-XII intact. Normal speech. Normal gait. PSYCHIATRIC: Cooperative. Good eye contact. Appropriate mood and affect. SKIN: Warm, dry, normal turgor, no rashes or lesions noted, normal capillary refill. Laboratory Results - last 24 hr CBC, BMP 03/27/19 13:15 03/27/19 13:15 Urine Test Results Urine Color Yellow Urine Appearance Clear Urine pH 5.0 (5.0-8.0) Ur Specific Anderson 1.025 (1.010-1.035) Urine Protein 2+ (NEGATIVE) H Urine Glucose (UA) Negative (NEGATIVE) Urine Ketones Negative (NEGATIVE) Urine Blood Trace (NEGATIVE) Urine Nitrite Negative (NEGATIVE) Urine Bilirubin Negative (NEGATIVE) Ur Leukocyte Esterase 1+ (NEGATIVE) H ASSESSMENT/PLAN: Patient is a 43 year old female with PMH of HTN and s/p hysterectomy on who presents with sepsis 2/2 complicated UTI. #Sepsis 2/2 complicated UTI CTAP: 2mm R UVJ calculus w/resultant mild-mod hydronephrosis. Non- obstructing L renal calculus. Mild focal R renal cortical scarring Pt received ceftriaxone in ED. Will start meropenem and vancomycin for broad coverage given sepsis and obstruction F/u blood and urine cx IVF NS, await for stone to pass #FEN IVNS @ 100ml/hr Sodium-controlled diet #DVT ppx Heparin #Dispo Monitor on med-surg Visit type - Emergency Visit Emergency Visit: Yes ED Registration Date: 03/27/19 Care time: The patient presented to the Emergency Department on the above date and was hospitalized for further evaluation of their emergent condition. - New Patient This patient is new to me today: Yes Date on this admission: 05/20/19 - Critical Care Critical Care patient: No ATTENDING PHYSICIAN STATEMENT I saw and evaluated the patient. I reviewed the resident's note and discussed the case with the resident. I agree with the resident's findings and plan as documented. SUBJECTIVE: OBJECTIVE: ASSESSMENT AND PLAN:
[2019-03-27] MEDS ORDERED: TAMSULOSIN HCL 0.4 MG CAP PO ONE (20:52)
[2019-03-27] MEDS ORDERED: TAMSULOSIN HCL 0.4 MG CAP ONE (21:32)
[2019-03-27] MEDS ORDERED: SODIUM CHLORIDE 1,000 ML IV SCH (22:00)
[2019-03-27] MEDS ORDERED: MEROPENEM 1 GM in DEXTROSE 5%-WATER 100 ML IVPB ONE (22:51)
[2019-03-27] MEDS ORDERED: VANCOMYCIN 1 GM in D5W (PRE-DOCKED) 1,000 MG/250 ML IVPB ONE (23:15)
[2019-03-28] MEDS ORDERED: VANCOMYCIN 1 GRAM (PRE-DOCKED) 1,000 MG/250 ML BAG IVPB ONE
[2019-03-28] MEDS: ACETAMINOPHEN 1000 MG/100 ML VIAL (NON FORMULARY) IVPB PRN ×3 (00:30→22:45)
[2019-03-28] MEDS: VANCOMYCIN 1 GM in D5W (PRE-DOCKED) 1,000 MG/250 ML IVPB SCH ×2 (02:24→11:30)
[2019-03-28] MEDS: HEPARIN NA (PORCINE) 5,000 UNITS/ML 1ML VIAL SQ SCH (06:32)
[2019-03-28 08:08] LABS: ALBUMIN 3.1 g/dl (3.4-5.0); BILIRUBIN,TOTAL 0.4 mg/dL (0.2-1); BLOOD UREA NITROGEN 11.9 mg/dL (7-18); CALCIUM 8.4 mg/dL (8.5-10.1); CREATININE 0.8 mg/dL (0.55-1.3); POTASSIUM 3.4 mmol/L (3.5-5.1); TOT PROT 7.1 g/dl (6.4-8.2)
[2019-03-28] MEDS ORDERED: POTASSIUM CHLORIDE TABS 20 MEQ TABLET.ER (FP) PO ONE (08:18)
[2019-03-28] MEDS ORDERED: IBUPROFEN 800 MG/8 ML IJ IVPB ONE ×2 (08:32→13:00)
[2019-03-28 08:34] LABS: BASO % 0.2 % (0-2.0); EOS % 0.1 % (0-4.5); HEMATOCRIT 38.7 % (32.4-45.2); HEMOGLOBIN 12.6 GM/dL (10.7-15.3); LYMPH % 3.5 % (8-40); MCHC 32.7 g/dl (32.0-36.0); MEAN CELL VOLUME 94.8 fl (80-96); MEAN PLT VOLUME 9.5 fl (7.5-11.1); MONO % 1.7 % (3.8-10.2); NEUT % 94.5 % (42.8-82.8); PLATELET COUNT 181 K/MM3 (134-434); RBC 4.08 M/mm3 (3.60-5.2); RDW 12.9 % (11.6-15.6); WHITE BLOOD COUNT 15.8 K/mm3 (4.0-10.0)
[2019-03-28] MEDS ORDERED: SODIUM CHLORIDE 500 ML IV STA (09:00)
[2019-03-28] MEDS ORDERED: LOSARTAN 50MG/HCTZ 12.5MG 1 TAB (FP) PO SCH (10:00)
[2019-03-28 10:13] LABS: ANISOCYTOSIS 0; MACROCYTOSIS 0; PLATELET ESTIMATE NORMAL
--- NOTE | 2019-03-28 10:15 | EKG ---
Test Reason : Blood Pressure : / mmHG Vent. Rate : 098 BPM Atrial Rate : 098 BPM P-R Int : 122 ms QRS Dur : 082 ms QT Int : 338 ms P-R-T Axes : 031 082 065 degrees QTc Int : 431 ms NORMAL SINUS RHYTHM NORMAL ECG WHEN COMPARED WITH ECG OF 15-FEB-2019 13:58, NO SIGNIFICANT CHANGE WAS FOUND Confirmed by Young Patel MD ([id number]) on 03/28/2019 10:14:56 AM Referred By: Confirmed By:Young Patel MD
[2019-03-28] MEDS ORDERED: MEROPENEM 1 GM in DEXTROSE 5%-WATER 100 ML IVPB ONE (11:00)
[2019-03-28] MEDS: DEXTROSE 5%-LACTATED RINGERS 1,000 ML IV SCH (11:34)
[2019-03-28] MEDS ORDERED: PT OWN MED DRAWER 7, Y5N ONE (12:50)
[2019-03-28] MEDS ORDERED: MEROPENEM 1 GM VIAL (RESTRICTED TO ID) IVPB ONE ×2 (12:51)
[2019-03-28] MEDS ORDERED: DEXTROSE 5%-WATER 100 ML IVPB ONE ×2 (12:51→17:08)
--- NOTE | 2019-03-28 13:27 | PN ---
Progress Note (short form) - Note Progress Note: ID consult dictated imp/reccd 43 yo female admitted from home with Right flank pain and fevers, elevated lactic acid c/w sepsis dysuria and vomiting yesterday first CT scan with right hydronephrosis and 2 mm stone, repeat ct scan improved hydronephrosis +UA now with gram negative bacteremia plan zosyn for gram negative bacteremia f/u cultures d/w hospitalist Problem List - Problems (1) Sepsis Code(s): A41.9 - SEPSIS, UNSPECIFIED ORGANISM Qualifiers: Sepsis type: sepsis due to unspecified organism Sepsis acute organ dysfunction status: unspecified Qualified Code(s): A41.9 - Sepsis, unspecified organism (2) Gram-negative bacteremia Code(s): R78.81 - BACTEREMIA (3) UTI (urinary tract infection) Code(s): N39.0 - URINARY TRACT INFECTION, SITE NOT SPECIFIED Qualifiers: Urinary tract infection type: acute cystitis Hematuria presence: without hematuria Qualified Code(s): N30.00 - Acute cystitis without hematuria (4) Kidney stone Code(s): N20.0 - CALCULUS OF KIDNEY
--- NOTE | 2019-03-28 15:44 | PN ---
Physical Exam: SUBJECTIVE: Patient seen and examined. Complains of abd pain. Patient had repeat fevers overnight. Able to go to the bathroom this morning without pain when urinating but states that urine was dark. Denies chest pain, SOB. OBJECTIVE: Vital Signs Period Temp Pulse Resp BP Sys/Swan Pulse Ox Last 24 Hr 99.3 F-103.0 F 98-133 18-20 89-128/46-75 98-98 GENERAL: The patient is awake, alert, and fully oriented, in no acute distress. HEAD: Normal with no signs of trauma. EYES: PERRL, EOMI, no scleral icterus ENT: dry mucous membranes NECK: Trachea midline, full range of motion, supple. LUNGS: Breath sounds equal, clear to auscultation bilaterally, no wheezes, no crackles, no accessory muscle use. HEART: Regular rate and rhythm, S1, S2 without murmur, rub or gallop. ABDOMEN: moderate TTP over rght flank, LLQ. no guarding, no rebound. hysterectomy scar healing well without signs of infection. EXTREMITIES: 2+ pulses, warm, well-perfused, no edema. NEUROLOGICAL: Normal speech, gait not observed. PSYCH: Normal mood, normal affect. SKIN: Warm, dry, normal turgor Laboratory Results - last 24 hr 03/27/19 03/28/19 03/28/19 17:30 06:35 06:35 WBC 15.8 H RBC 4.08 Hgb 12.6 Hct 38.7 MCV 94.8 MCH 31.0 MCHC 32.7 RDW 12.9 Plt Count 181 D MPV 9.5 Absolute Neuts (auto) 14.9 H Neutrophils % 94.5 H Neutrophils % (Manual) 59.6 Band Neutrophils % 34.4 Lymphocytes % 3.5 L D Lymphocytes % (Manual) 3.0 L Monocytes % 1.7 L Monocytes % (Manual) 1 L Eosinophils % 0.1 Eosinophils % (Manual) 0.0 Basophils % 0.2 Basophils % (Manual) 0.0 Myelocytes % (Man) 0 Promyelocytes % (Man) 0 Blast Cells % (Manual) 0 Nucleated RBC % 0 Metamyelocytes 2 Hypochromia 0 Platelet Estimate Normal Polychromasia 0 Poikilocytosis 0 Anisocytosis 0 Microcytosis 0 Macrocytosis 0 Sodium 141 Potassium 3.4 L Chloride 107 Carbon Dioxide 22 Anion Gap 12 BUN 11.9 Creatinine 0.8 Est GFR (CKD-EPI)AfAm 104.65 Est GFR (CKD-EPI)NonAf 90.30 Random Glucose 98 Lactic Acid 2.6 H* Calcium 8.4 L Total Bilirubin 0.4 AST 54 H ALT 55 Alkaline Phosphatase 88 Total Protein 7.1 Albumin 3.1 L 03/28/19 09:30 WBC RBC Hgb Hct MCV MCH MCHC RDW Plt Count MPV Absolute Neuts (auto) Neutrophils % Neutrophils % (Manual) Band Neutrophils % Lymphocytes % Lymphocytes % (Manual) Monocytes % Monocytes % (Manual) Eosinophils % Eosinophils % (Manual) Basophils % Basophils % (Manual) Myelocytes % (Man) Promyelocytes % (Man) Blast Cells % (Manual) Nucleated RBC % Metamyelocytes Hypochromia Platelet Estimate Polychromasia Poikilocytosis Anisocytosis Microcytosis Macrocytosis Sodium Potassium Chloride Carbon Dioxide Anion Gap BUN Creatinine Est GFR (CKD-EPI)AfAm Est GFR (CKD-EPI)NonAf Random Glucose Lactic Acid 1.6 Calcium Total Bilirubin AST ALT Alkaline Phosphatase Total Protein Albumin Active Medications Generic Name Dose Route Start Last Admin Trade Name Freq PRN Reason Stop Dose Admin Acetaminophen 1,000 mg 03/27/19 22:00 03/28/19 06:32 Ofirmev Injection - IVPB 1,000 mg Q6H PRN Administration PAIN LEVEL 4 - 6 Fentanyl 25 mcg 03/28/19 15:25 Sublimaze Injection - IVPUSH Q5M PRN PAIN-PACU ORDER X 4 DOSES ONLY Heparin Sodium (Porcine) 5,000 unit 03/28/19 06:00 03/28/19 06:32 Heparin - SQ 5,000 unit TID RITO Administration Dextrose/Lactated Ringer's 1,000 mls @ 125 mls/hr 03/28/19 09:15 03/28/19 11: 34 D5-Lr - IV 125 mls/hr ASDIR RITO Administration Piperacillin Sod/Tazobactam 100 mls @ 200 mls/hr 03/28/19 18:00 Sod 4.5 gm/ Dextrose IVPB Q8H-IV RITO Protocol Lactated Ringer's 1,000 mls @ 125 mls/hr 03/28/19 15:30 Lactated Ringers Solution IV ASDIR RITO Ondansetron HCl 4 mg 03/27/19 21:59 Zofran - PO Q6H PRN NAUSEA Ondansetron HCl 4 mg 03/28/19 15:25 Zofran Injection IVPUSH Q6H PRN NAUSEA AND/OR VOMITING ASSESSMENT/PLAN: 43 y/o/f with PMHx of HTN and s/p hysterectomy on 02/21/19 who presents with sepsis 2/2 complicated UTI. #Sepsis 2/2 complicated UTI CTAP: 2mm R UVJ calculus w/resultant mild-mod hydronephrosis. Non- obstructing L renal calculus. Mild focal R renal cortical scarring Repeat CTAP showing passage of stone and improvement of hydronephrosis Pt received ceftriaxone in ED Meropenum x2 Continue Zosyn Blood cx pending organism in both bottles Urine cx with non lactose fermenting GNB and pending second organism Urology consulted, will follow patient. No need for current intervention as stone has passed WBC improving, continue to monitor #HTN Continue home medication #FEN LR @ 125mls/hr Sodium-controlled diet #DVT ppx Heparin #Dispo Continue abx management, D/C pending improvement and clean blood cx Visit type - Emergency Visit Emergency Visit: Yes ED Registration Date: 03/27/19 Care time: The patient presented to the Emergency Department on the above date and was hospitalized for further evaluation of their emergent condition. - New Patient This patient is new to me today: No - Critical Care Critical Care patient: No ATTENDING PHYSICIAN STATEMENT I saw and evaluated the patient. I reviewed the resident's note and discussed the case with the resident. I agree with the resident's findings and plan as documented. SUBJECTIVE: OBJECTIVE: ASSESSMENT AND PLAN:
--- NOTE | 2019-03-28 16:14 | CON.GU ---
Consult Consult Specialty:: urology Reason for Consultation:: urosepsis with obstructing right ureteral stone - History of Present Illness Chief Complaint: urosepsis with right hydro secondary to stone History of Present Illness: patient is a 43 year old female with history of right flank pain with nause and vomiting wit fever and chills. Patient was noted to have a distal right 2 mm stone. Patient underwent a second ct scan which showed that the stone had passed. Patient is currently comfortable and denies nausea or vomiting. - History Source History Provided By: Patient - Past Medical History ...LMP: 02/03/19 ...: No - Past Surgical History Past Surgical History: Yes: None - Alcohol/Substance Use Hx Alcohol Use: No History of Substance Use: reports: None - Smoking History Smoking history: Never smoked Have you smoked in the past 12 months: No - Social History History of Recent Travel: No Home Medications - Allergies Allergies/Adverse Reactions: Allergies Allergy/AdvReac Type Severity Reaction Status Date / Time No Known Drug Allergies Allergy Verified 03/27/19 12:22 - Home Medications Home Medications: Ambulatory Orders Losartan 50Mg/Hctz 12.5MG [Hyzaar -] 1 tab PO DAILY 02/15/19 Physical Exam- Vital Signs: Vital Signs Temperature 100.5 F H 03/28/19 13:15 Pulse Rate 103 H 03/28/19 13:15 Respiratory Rate 18 03/28/19 13:15 Blood Pressure 115/59 L 03/28/19 13:15 O2 Sat by Pulse Oximetry (%) 98 03/27/19 19:20 Constitutional: Yes: Well Nourished, No Distress, Calm Eyes: Yes: WNL, Conjunctiva Clear, EOM Intact HENT: Yes: WNL, Atraumatic, Pharyngeal Erythema Neck: Yes: WNL, Supple, Trachea Midline Cardiovascular: Yes: WNL, Regular Rate and Rhythm Respiratory: Yes: WNL, Regular Gastrointestinal: Yes: WNL, Normal Bowel Sounds, Soft Renal/: Yes: WNL Kidneys: Yes: WNL Pelvis: Yes: WNL, Bladder Non Palpable External Genitalia: Yes: WNL Musculoskeletal: Yes: WNL Extremities: Yes: WNL Integumentary: Yes: WNL Labs: CBC, BMP 03/28/19 06:35 03/28/19 06:35 Assessment/Plan impression right hydronephrosis s/p right ureteral stone passage urosepsis plan continue antibiotics 45 minutes devoted to patient care.
[2019-03-28] MEDS ORDERED: PIPERACILLIN/TAZOBACTAM 4.5 GM VIAL IVPB ONE (17:08)
[2019-03-28] MEDS: PIPERACILLIN/TAZOB 4.5 GM 4.5 GM in DEXTROSE 5%-WATER 100 ML IVPB SCH (17:12)
--- NOTE | 2019-03-28 18:17 | PN ---
Teaching Attending Note Name of Resident: Zainab Tracey ATTENDING PHYSICIAN STATEMENT I saw and evaluated the patient. I reviewed the resident's note and discussed the case with the resident. I agree with the resident's findings and plan as documented with exceptions below. SUBJECTIVE: patient seen and examined, right flank/right abdominal pain, improved today, denies urinary symptoms. OBJECTIVE: Vital Signs Period Temp Pulse Resp BP Sys/Swan Pulse Ox Last 24 Hr 99.3 F-103.0 F 98-133 18-20 89-122/46-70 98 Intake & Output 03/25/19 03/26/19 03/27/19 03/28/19 23:59 23:59 23:59 23:59 Intake Total 2000 Output Total 500 Balance 2000 -500 Weight 140 lb 6.4 oz 140 lb 6.4 oz General: sitting in wheelchair when evaluated around 1010 AM, no acute distress Chest: CTAB, no rales or wheezing Abdomen:Soft, Right lateral abdominal tenderness, pos Right CVA tenderness, LLQ tenderness at surgical site, no voluntary or involuntary guarding or rigidity, pos bowel sounds Extremities: no edema Home Medications Medication Instructions Recorded Losartan 50Mg/Hctz 12.5MG [Hyzaar 1 tab PO DAILY 02/15/19 -] Active Medications Acetaminophen (Ofirmev Injection -) 1,000 mg IVPB Q6H PRN PRN Reason: PAIN LEVEL 4 - 6 Last Admin: 03/28/19 06:32 Dose: 1,000 mg Fentanyl (Sublimaze Injection -) 25 mcg IVPUSH Q5M PRN PRN Reason: PAIN-PACU ORDER X 4 DOSES ONLY Heparin Sodium (Porcine) (Heparin -) 5,000 unit SQ TID RITO Last Admin: 03/28/19 06:32 Dose: 5,000 unit Dextrose/Lactated Ringer's (D5-Lr -) 1,000 mls @ 125 mls/hr IV ASDIR RITO Last Admin: 03/28/19 11:34 Dose: 125 mls/hr Piperacillin Sod/Tazobactam (Sod 4.5 gm/ Dextrose) 100 mls @ 200 mls/hr IVPB Q8H-IV RITO; Protocol Last Admin: 03/28/19 17:12 Dose: 200 mls/hr Lactated Ringer's (Lactated Ringers Solution) 1,000 mls @ 125 mls/hr IV ASDIR RITO Ondansetron HCl (Zofran -) 4 mg PO Q6H PRN PRN Reason: NAUSEA Ondansetron HCl (Zofran Injection) 4 mg IVPUSH Q6H PRN PRN Reason: NAUSEA AND/OR VOMITING Laboratory Results - last 24 hr 03/27/19 03/28/19 03/28/19 17:30 06:35 06:35 WBC 15.8 H RBC 4.08 Hgb 12.6 Hct 38.7 MCV 94.8 MCH 31.0 MCHC 32.7 RDW 12.9 Plt Count 181 D MPV 9.5 Absolute Neuts (auto) 14.9 H Neutrophils % 94.5 H Neutrophils % (Manual) 59.6 Band Neutrophils % 34.4 Lymphocytes % 3.5 L D Lymphocytes % (Manual) 3.0 L Monocytes % 1.7 L Monocytes % (Manual) 1 L Eosinophils % 0.1 Eosinophils % (Manual) 0.0 Basophils % 0.2 Basophils % (Manual) 0.0 Myelocytes % (Man) 0 Promyelocytes % (Man) 0 Blast Cells % (Manual) 0 Nucleated RBC % 0 Metamyelocytes 2 Hypochromia 0 Platelet Estimate Normal Polychromasia 0 Poikilocytosis 0 Anisocytosis 0 Microcytosis 0 Macrocytosis 0 Sodium 141 Potassium 3.4 L Chloride 107 Carbon Dioxide 22 Anion Gap 12 BUN 11.9 Creatinine 0.8 Est GFR (CKD-EPI)AfAm 104.65 Est GFR (CKD-EPI)NonAf 90.30 Random Glucose 98 Lactic Acid 2.6 H* Calcium 8.4 L Total Bilirubin 0.4 AST 54 H ALT 55 Alkaline Phosphatase 88 Total Protein 7.1 Albumin 3.1 L 03/28/19 09:30 WBC RBC Hgb Hct MCV MCH MCHC RDW Plt Count MPV Absolute Neuts (auto) Neutrophils % Neutrophils % (Manual) Band Neutrophils % Lymphocytes % Lymphocytes % (Manual) Monocytes % Monocytes % (Manual) Eosinophils % Eosinophils % (Manual) Basophils % Basophils % (Manual) Myelocytes % (Man) Promyelocytes % (Man) Blast Cells % (Manual) Nucleated RBC % Metamyelocytes Hypochromia Platelet Estimate Polychromasia Poikilocytosis Anisocytosis Microcytosis Macrocytosis Sodium Potassium Chloride Carbon Dioxide Anion Gap BUN Creatinine Est GFR (CKD-EPI)AfAm Est GFR (CKD-EPI)NonAf Random Glucose Lactic Acid 1.6 Calcium Total Bilirubin AST ALT Alkaline Phosphatase Total Protein Albumin Microbiology 03/27/19 13:20 Urine - Urine Clean Catch Urine Culture - Preliminary Non Lactose Fermenting Gnb Pending Organism 03/27/19 17:30 Blood - Peripheral Venous Blood Culture - Preliminary Pending Organism 03/27/19 17:30 Blood - Peripheral Venous Blood Culture - Preliminary Pending Organism CT A/P x2 results noted ASSESSMENT AND PLAN: 43 yof with PMhx of HTN, recent hysterectomy 02/21/2019, for leimyoma/ menorrhagia, admitted with sudden onset right flank pain, fevers. 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 Discussed with Dr. Finn Meza, hold off on operative intervention. ID input noted Aggressive hydration, zosyn, follow up blood/urine cultures. WBC/fever curve improved. hold anti-hypertensives for now DVTPPX change to lovenox Dispo pending clinical improvement. Discussed with patient and . total time spent in patient visit, multipe discussions with urology, with ID, with family and co-ordination of care 45 min.
[2019-03-28] MEDS: LACTATED RINGERS SOLUTION 1,000 ML IV SCH (19:51)
[2019-03-28] MEDS ORDERED: VANCOMYCIN 1 GM in D5W (PRE-DOCKED) 1,000 MG/250 ML IVPB SCH (23:00)
[2019-03-29] MEDS ORDERED: PIPERACILLIN/TAZOBACTAM 4.5 GM VIAL IVPB ONE ×3 (01:34→17:35)
[2019-03-29] MEDS ORDERED: DEXTROSE 5%-WATER 100 ML IVPB ONE ×3 (01:34→17:35)
[2019-03-29] MEDS: PIPERACILLIN/TAZOB 4.5 GM 4.5 GM in DEXTROSE 5%-WATER 100 ML IVPB SCH ×3 (02:31→17:37)
--- NOTE | 2019-03-29 07:36 | PN ---
Progress Note (short form) - Note Progress Note: alert c/o headache and right flank pain Vital Signs Period Temp Pulse Resp BP Sys/Swan Pulse Ox Last 24 Hr 98.7 F-100.5 F 91-106 18-20 89-123/46-64 cor-rrr lungs clear abd- right cvat ext no edema CBC, BMP 03/28/19 06:35 03/28/19 06:35 labs pending Microbiology 03/27/19 13:20 Urine - Urine Clean Catch Urine Culture - Preliminary Non Lactose Fermenting Gnb Pending Organism 03/27/19 17:30 Blood - Peripheral Venous Blood Culture - Preliminary Pending Organism 03/27/19 17:30 Blood - Peripheral Venous Blood Culture - Preliminary Pending Organism a/p gram negative bacteremia UTI pyelonephritis continue zosyn for gram negative bacteremia f/u cultures f/u labs Problem List - Problems (1) Sepsis Code(s): A41.9 - SEPSIS, UNSPECIFIED ORGANISM Qualifiers: Sepsis type: sepsis due to unspecified organism Sepsis acute organ dysfunction status: unspecified Qualified Code(s): A41.9 - Sepsis, unspecified organism (2) Gram-negative bacteremia Code(s): R78.81 - BACTEREMIA (3) UTI (urinary tract infection) Code(s): N39.0 - URINARY TRACT INFECTION, SITE NOT SPECIFIED Qualifiers: Urinary tract infection type: acute cystitis Hematuria presence: without hematuria Qualified Code(s): N30.00 - Acute cystitis without hematuria (4) Kidney stone Code(s): N20.0 - CALCULUS OF KIDNEY
[2019-03-29 08:22] LABS: HEMATOCRIT 33.6 % (32.4-45.2); HEMOGLOBIN 11.2 GM/dL (10.7-15.3); MCH 31.3 pg (25.7-33.7); MCHC 33.5 g/dl (32.0-36.0); MEAN CELL VOLUME 93.7 fl (80-96); MEAN PLT VOLUME 8.9 fl (7.5-11.1); PLATELET COUNT 154 K/MM3 (134-434); RBC 3.58 M/mm3 (3.60-5.2); RDW 12.9 % (11.6-15.6); WHITE BLOOD COUNT 6.4 K/mm3 (4.0-10.0)
[2019-03-29 08:43] LABS: ALBUMIN 2.4 g/dl (3.4-5.0); BLOOD UREA NITROGEN 5.6 mg/dL (7-18); CALCIUM 8.3 mg/dL (8.5-10.1); CREATININE 0.7 mg/dL (0.55-1.3); POTASSIUM 3.8 mmol/L (3.5-5.1)
[2019-03-29] MEDS: ACETAMINOPHEN 1000 MG/100 ML VIAL (NON FORMULARY) IVPB PRN (09:56)
[2019-03-29] MEDS: DEXTROSE 5%-LACTATED RINGERS 1,000 ML IV SCH ×3 (10:23→21:17)
[2019-03-29] MEDS: HEPARIN NA (PORCINE) 5,000 UNITS/ML 1ML VIAL SQ SCH ×2 (14:08→21:18)
[2019-03-29] MEDS: ACETAMINOPHEN 325 MG TABLET (FP) PO PRN (16:24)
--- NOTE | 2019-03-29 23:44 | PN ---
Progress Note, Physician - Current Medication List Current Medications: Active Medications Acetaminophen (Tylenol -) 650 mg PO Q8H PRN PRN Reason: PAIN LEVEL 1-5 Last Admin: 03/29/19 16:24 Dose: 650 mg Fentanyl (Sublimaze Injection -) 25 mcg IVPUSH Q5M PRN PRN Reason: PAIN-PACU ORDER X 4 DOSES ONLY Heparin Sodium (Porcine) (Heparin -) 5,000 unit SQ TID RITO Last Admin: 03/29/19 21:18 Dose: 5,000 unit Dextrose/Lactated Ringer's (D5-Lr -) 1,000 mls @ 125 mls/hr IV ASDIR RITO Last Admin: 03/29/19 21:17 Dose: 125 mls/hr Piperacillin Sod/Tazobactam (Sod 4.5 gm/ Dextrose) 100 mls @ 200 mls/hr IVPB Q8H-IV RITO; Protocol Last Admin: 03/29/19 17:37 Dose: 200 mls/hr Lactated Ringer's (Lactated Ringers Solution) 1,000 mls @ 125 mls/hr IV ASDIR RITO Last Admin: 03/28/19 19:51 Dose: Not Given Ondansetron HCl (Zofran -) 4 mg PO Q6H PRN PRN Reason: NAUSEA Ondansetron HCl (Zofran Injection) 4 mg IVPUSH Q6H PRN PRN Reason: NAUSEA AND/OR VOMITING - Objective Vital Signs: Vital Signs Temperature 98.2 F 03/29/19 21:00 Pulse Rate 74 03/29/19 21:00 Respiratory Rate 20 03/29/19 21:00 Blood Pressure 132/77 03/29/19 21:00 O2 Sat by Pulse Oximetry (%) 99 03/29/19 21:00 Labs: CBC, BMP 03/29/19 07:26 03/29/19 07:26
[2019-03-30] MEDS ORDERED: PIPERACILLIN/TAZOBACTAM 4.5 GM VIAL IVPB ONE ×3 (01:02→17:07)
[2019-03-30] MEDS ORDERED: DEXTROSE 5%-WATER 100 ML IVPB ONE ×3 (01:02→17:07)
[2019-03-30] MEDS: PIPERACILLIN/TAZOB 4.5 GM 4.5 GM in DEXTROSE 5%-WATER 100 ML IVPB SCH ×3 (01:20→17:11)
[2019-03-30] MEDS: ACETAMINOPHEN 325 MG TABLET (FP) PO PRN ×3 (01:20→21:11)
[2019-03-30] MEDS: LACTATED RINGERS SOLUTION 1,000 ML IV SCH (02:44)
[2019-03-30] MEDS: HEPARIN NA (PORCINE) 5,000 UNITS/ML 1ML VIAL SQ SCH ×3 (06:18→21:12)
[2019-03-30 07:13] LABS: BASO % 0.5 % (0-2.0); EOS % 1.8 % (0-4.5); HEMATOCRIT 32.9 % (32.4-45.2); HEMOGLOBIN 11.2 GM/dL (10.7-15.3); LYMPH % 25.5 % (8-40); MCH 31.1 pg (25.7-33.7); MCHC 33.9 g/dl (32.0-36.0); MEAN CELL VOLUME 91.7 fl (80-96); MEAN PLT VOLUME 8.9 fl (7.5-11.1); MONO % 6.7 % (3.8-10.2); NEUT % 65.5 % (42.8-82.8); PLATELET COUNT 162 K/MM3 (134-434); RBC 3.59 M/mm3 (3.60-5.2); RDW 13.1 % (11.6-15.6); WHITE BLOOD COUNT 5.2 K/mm3 (4.0-10.0)
[2019-03-30 07:50] LABS: ALBUMIN 2.6 g/dl (3.4-5.0); BILIRUBIN,TOTAL 0.8 mg/dL (0.2-1); BLOOD UREA NITROGEN 4.2 mg/dL (7-18); CALCIUM 8.7 mg/dL (8.5-10.1); CREATININE 0.6 mg/dL (0.55-1.3); POTASSIUM 3.3 mmol/L (3.5-5.1); TOT PROT 6.3 g/dl (6.4-8.2)
[2019-03-30] MEDS: ONDANSETRON 4 MG/2 ML VIAL IVPUSH PRN (08:40)
[2019-03-30] MEDS: DEXTROSE 5%-LACTATED RINGERS 1,000 ML IV SCH (11:38)
--- NOTE | 2019-03-30 14:20 | PN ---
Progress Note (short form) - Note Progress Note: alert still some headache and RUQ pain no fevers ambulating Vital Signs Period Temp Pulse Resp BP Sys/Swan Pulse Ox Last 24 Hr 98.0 F-98.4 F 69-94 18-20 119-134/62-77 99 cor-rrr lungs clear abd soft, +RUQ pain to palpation ext no edema CBC, BMP 03/30/19 06:20 03/30/19 06:20 Microbiology 03/27/19 17:30 Blood - Peripheral Venous Blood Culture - Final Non Lactose Fermenting Gnb 03/27/19 13:20 Urine - Urine Clean Catch Urine Culture - Final Escherichia Coli Escherichia Coli#2 03/27/19 17:30 Blood - Peripheral Venous Blood Culture - Final Escherichia Coli 03/29/19 07:55 Blood - Peripheral Venous Blood Culture - Preliminary NO GROWTH OBTAINED AFTER 24 HOURS, INCUBATION TO CONTINUE FOR 4 DAYS. 03/29/19 07:55 Blood - Peripheral Venous Blood Culture - Preliminary NO GROWTH OBTAINED AFTER 24 HOURS, INCUBATION TO CONTINUE FOR 4 DAYS. a/p ecoli bacteremia and UTI/pyelonephritis now with abnormal lfts and persistent RUQ pain-?cholycystitis sonogram RUQ Laboratory Tests 03/30/19 06:20 AST 139 H ALT 165 H Alkaline Phosphatase 152 H continue zosyn pending further w/u Problem List - Problems (1) Sepsis Code(s): A41.9 - SEPSIS, UNSPECIFIED ORGANISM Qualifiers: Sepsis type: sepsis due to unspecified organism Sepsis acute organ dysfunction status: unspecified Qualified Code(s): A41.9 - Sepsis, unspecified organism (2) Gram-negative bacteremia Code(s): R78.81 - BACTEREMIA (3) UTI (urinary tract infection) Code(s): N39.0 - URINARY TRACT INFECTION, SITE NOT SPECIFIED Qualifiers: Urinary tract infection type: acute cystitis Hematuria presence: without hematuria Qualified Code(s): N30.00 - Acute cystitis without hematuria (4) Kidney stone Code(s): N20.0 - CALCULUS OF KIDNEY
[2019-03-30] MEDS: ONDANSETRON 4 MG TABLET PO PRN (18:48)
[2019-03-30] MEDS ORDERED: POTASSIUM CHLORIDE TABS 20 MEQ TABLET.ER (FP) PO ONE (19:33)
[2019-03-30] MEDS: DEXTROSE 5%-0.45% SALINE 1,000 ML IV SCH (21:13)
--- NOTE | 2019-03-30 21:23 | PN ---
Progress Note, Physician - Current Medication List Current Medications: Active Medications Acetaminophen (Tylenol -) 650 mg PO Q8H PRN PRN Reason: PAIN LEVEL 1-5 Last Admin: 03/30/19 21:11 Dose: 650 mg Heparin Sodium (Porcine) (Heparin -) 5,000 unit SQ TID RITO Last Admin: 03/30/19 21:12 Dose: 5,000 unit Piperacillin Sod/Tazobactam (Sod 4.5 gm/ Dextrose) 100 mls @ 200 mls/hr IVPB Q8H-IV RITO; Protocol Last Admin: 03/30/19 17:11 Dose: 200 mls/hr Dextrose/Sodium Chloride (D5-1/2ns -) 1,000 mls @ 75 mls/hr IV ASDIR RITO Last Admin: 03/30/19 21:13 Dose: 75 mls/hr Ondansetron HCl (Zofran -) 4 mg PO Q6H PRN PRN Reason: NAUSEA Last Admin: 03/30/19 18:48 Dose: 4 mg Ondansetron HCl (Zofran Injection) 4 mg IVPUSH Q6H PRN PRN Reason: NAUSEA AND/OR VOMITING Last Admin: 03/30/19 08:40 Dose: 4 mg - Objective Vital Signs: Vital Signs Temperature 98 F 03/30/19 17:17 Pulse Rate 80 03/30/19 17:17 Respiratory Rate 20 03/30/19 17:17 Blood Pressure 134/85 03/30/19 17:17 O2 Sat by Pulse Oximetry (%) 99 03/30/19 09:00 Labs: CBC, BMP 03/30/19 06:20 03/30/19 06:20
[2019-03-31] MEDS: PIPERACILLIN/TAZOB 4.5 GM 4.5 GM in DEXTROSE 5%-WATER 100 ML IVPB SCH ×3 (02:36→17:18)
[2019-03-31] MEDS ORDERED: PIPERACILLIN/TAZOBACTAM 4.5 GM VIAL IVPB ONE ×3 (03:23→17:15)
[2019-03-31] MEDS ORDERED: DEXTROSE 5%-WATER 100 ML IVPB ONE ×3 (03:23→17:15)
[2019-03-31] MEDS: HEPARIN NA (PORCINE) 5,000 UNITS/ML 1ML VIAL SQ SCH ×3 (06:23→21:15)
--- NOTE | 2019-03-31 08:01 | CON.GI ---
Consult Consult Specialty:: GI Referred by:: Dr Nevin Rice - History of Present Illness Chief Complaint: Elevated LFTs History of Present Illness: Patient is a 43 y/o female with past medical history of HTN and s/p hysterectomy on 02/21/19. Patient initially presented to ER with complaints of urinary discomfort. Work up showed UTI and L renal calculus. Routine lab work showing steady elevation in LFTs. Abdominal US shows diffuse hepatic steatosis. Patient denies history of alcohol or drug use. Patient complains of epigastric pain after eating accompanied with nausea and vomiting. States last night having 2 episodes of non-bloody dark diarrhea that awakened her at night. Denies fevers or chills. Denies abnormal weight loss. - History Source History Provided By: Patient Limitations to Obtaining History: No Limitations - Past Medical History Cardio/Vascular: Yes: HTN ...LMP: 02/03/19 ...: No - Past Surgical History Past Surgical History: Yes: Hysterectomy (02/21/19) - Alcohol/Substance Use Hx Alcohol Use: No History of Substance Use: reports: None - Smoking History Smoking history: Never smoked Have you smoked in the past 12 months: No - Social History ADL: Independent History of Recent Travel: No Home Medications - Allergies Allergies/Adverse Reactions: Allergies Allergy/AdvReac Type Severity Reaction Status Date / Time No Known Drug Allergies Allergy Verified 03/27/19 12:22 - Home Medications Home Medications: Ambulatory Orders Losartan 50Mg/Hctz 12.5MG [Hyzaar -] 1 tab PO DAILY 02/15/19 Review of Systems - Review of Systems Constitutional: reports: No Symptoms Eyes: reports: No Symptoms HENT: reports: No Symptoms Neck: reports: No Symptoms Cardiovascular: reports: No Symptoms Respiratory: reports: No Symptoms Gastrointestinal: reports: Abdominal Pain, Diarrhea, Nausea, Vomiting Genitourinary: reports: No Symptoms Breasts: reports: No Symptoms Reported Musculoskeletal: reports: No Symptoms Integumentary: reports: No Symptoms Neurological: reports: No Symptoms Endocrine: reports: No Symptoms Hematology/Lymphatic: reports: No Symptoms Psychiatric: reports: No Symptoms Physical Exam-GI Vital Signs: Vital Signs Temperature 98 F 03/31/19 06:18 Pulse Rate 63 03/31/19 06:18 Respiratory Rate 20 03/31/19 06:18 Blood Pressure 136/78 03/31/19 06:18 O2 Sat by Pulse Oximetry (%) 99 03/30/19 09:00 Constitutional: Yes: No Distress, Calm Eyes: Yes: Conjunctiva Clear HENT: Yes: Atraumatic Cardiovascular: Yes: Regular Rate and Rhythm Respiratory: Yes: Regular, CTA Bilaterally Gastrointestinal Inspection: Yes: WNL. No: Ascites, Distention, Hernia, Scars, Other ...Auscultate: Yes: Normoactive Bowel Sounds. No: Hyperactive Bowel Sounds, Hypoactive Bowel Sounds, No Bowel Sounds, Other ...Palpate: Yes: Soft, Tenderness (RUQ). No: Firm/Rigid, Guarding, Hepatomegaly , Mass, Pulsatile Mass, Splenomegaly, Tenderness, Epigastium, Tenderness, Rebound, Other ...Percussion: Yes: Tympanitic. No: Dullness, Fluid Wave, Other Neurological: Yes: Alert, Oriented Psychiatric: Yes: Alert, Oriented Labs: CBC, BMP 03/30/19 06:20 03/30/19 06:20 Imaging - Results Cat Scan: Report Reviewed Ultrasound: Report Reviewed Problem List - Problems (1) RUQ abdominal pain Assessment/Plan: associated with nausea and vomiting r/o acute cholecystitis R> HIDA scan with EF Code(s): R10.11 - RIGHT UPPER QUADRANT PAIN (2) Elevated liver enzymes Assessment/Plan: r/o secondary to cholecystitis, normal cbd by ultrasund, Fatty liver R> hepatitis profile Code(s): R74.8 - ABNORMAL LEVELS OF OTHER SERUM ENZYMES (3) Diarrhea Assessment/Plan: r/o c.diff R> stool for c diff Code(s): R19.7 - DIARRHEA, UNSPECIFIED
[2019-03-31 08:22] LABS: BASO % 0.2 % (0-2.0); EOS % 1.2 % (0-4.5); HEMATOCRIT 37.5 % (32.4-45.2); HEMOGLOBIN 12.6 GM/dL (10.7-15.3); LYMPH % 26.2 % (8-40); MCH 30.9 pg (25.7-33.7); MCHC 33.6 g/dl (32.0-36.0); MEAN CELL VOLUME 92.1 fl (80-96); MEAN PLT VOLUME 8.6 fl (7.5-11.1); MONO % 7.7 % (3.8-10.2); NEUT % 64.7 % (42.8-82.8); PLATELET COUNT 224 K/MM3 (134-434); RBC 4.07 M/mm3 (3.60-5.2); RDW 13.2 % (11.6-15.6); WHITE BLOOD COUNT 7.8 K/mm3 (4.0-10.0)
[2019-03-31 08:55] LABS: ALBUMIN 2.9 g/dl (3.4-5.0); BILIRUBIN,TOTAL 0.8 mg/dL (0.2-1); BLOOD UREA NITROGEN 5.4 mg/dL (7-18); CALCIUM 9.1 mg/dL (8.5-10.1); CREATININE 0.6 mg/dL (0.55-1.3); POTASSIUM 3.4 mmol/L (3.5-5.1); TOT PROT 7.3 g/dl (6.4-8.2)
[2019-03-31] MEDS: ONDANSETRON 4 MG TABLET PO PRN (09:14)
[2019-03-31] MEDS: LACTATED RINGERS SOLUTION 1,000 ML IV SCH (11:53)
[2019-03-31] MEDS: ONDANSETRON 4 MG/2 ML VIAL IVPUSH PRN (14:09)
[2019-03-31] MEDS: ACETAMINOPHEN 325 MG TABLET (FP) PO PRN (14:48)
[2019-03-31] MEDS ORDERED: POTASSIUM CHLORIDE TABS 20 MEQ TABLET.ER (FP) PO ONE (15:00)
--- NOTE | 2019-03-31 15:26 | PN ---
Progress Note (short form) - Note Progress Note: alert less ruq pain awaiting results of hida scan Vital Signs Period Temp Pulse Resp BP Sys/Swan Pulse Ox Last 24 Hr 97.8 F-98.5 F 63-80 18-20 119-151/65-85 cor-rrr lungs clear abd soft, minimal RUQ discomfort ext no edema CBC, BMP 03/31/19 07:45 03/31/19 07:45 Microbiology 03/29/19 07:55 Blood - Peripheral Venous Blood Culture - Preliminary NO GROWTH OBTAINED AFTER 48 HOURS, INCUBATION TO CONTINUE FOR 3 DAYS. 03/29/19 07:55 Blood - Peripheral Venous Blood Culture - Preliminary NO GROWTH OBTAINED AFTER 48 HOURS, INCUBATION TO CONTINUE FOR 3 DAYS. 03/27/19 17:30 Blood - Peripheral Venous Blood Culture - Final Non Lactose Fermenting Gnb 03/27/19 13:20 Urine - Urine Clean Catch Urine Culture - Final Escherichia Coli Escherichia Coli#2 03/27/19 17:30 Blood - Peripheral Venous Blood Culture - Final Escherichia Coli a/p ecoli bacteremia and UTI/pyelonephritis now with abnormal lfts and persistent RUQ pain-?cholycystitis continue zosyn pending hida results day #4 antibiotics Problem List - Problems (1) Sepsis Code(s): A41.9 - SEPSIS, UNSPECIFIED ORGANISM Qualifiers: Sepsis type: sepsis due to unspecified organism Sepsis acute organ dysfunction status: unspecified Qualified Code(s): A41.9 - Sepsis, unspecified organism (2) Gram-negative bacteremia Code(s): R78.81 - BACTEREMIA (3) UTI (urinary tract infection) Code(s): N39.0 - URINARY TRACT INFECTION, SITE NOT SPECIFIED Qualifiers: Urinary tract infection type: acute cystitis Hematuria presence: without hematuria Qualified Code(s): N30.00 - Acute cystitis without hematuria (4) Kidney stone Code(s): N20.0 - CALCULUS OF KIDNEY
--- NOTE | 2019-03-31 15:41 | PN ---
Progress Note (short form) - Note Progress Note: still wth persistent RUQ pain, HIDA scan c/w chronic cholecystitis vs gall bladder dyskenisia R> will need surgical consultation Problem List - Problems (1) RUQ abdominal pain Code(s): R10.11 - RIGHT UPPER QUADRANT PAIN (2) Elevated liver enzymes Code(s): R74.8 - ABNORMAL LEVELS OF OTHER SERUM ENZYMES (3) Diarrhea Code(s): R19.7 - DIARRHEA, UNSPECIFIED
--- NOTE | 2019-03-31 19:00 | CONS ---
INFECTIOUS DISEASE CONSULTATION DATE OF CONSULTATION: DATE OF DICTATION: 03/28/2019 HISTORY: This is a 43-year-old woman status post recent hysterectomy on February 21 she reports is uneventful for leiomyoma who presents with acute onset of urinary discomfort yesterday morning associated with fevers, chills, dysuria, and right flank pain. She had nausea and vomiting as well yesterday. She has no prior history of kidney stones or UTI. She had an uneventful hysterectomy on February 21. She was admitted with these problems. She was noted to have a white count of 18,000. She was noted to have pyuria. She had a CAT scan done of her abdomen and pelvis, though it was notable for 2-mm right ureterovesical junction calculus with [id number] right hydronephrosis. She was treated with Meropenem in the ER and vancomycin. I am asked to see her for further management this morning. Her blood cultures are growing gram-negative bacilli. She is awake and alert. She reports no recent antibiotic use, and her last admission was as stated February 21 to February 23 at which time she received cefazolin perioperatively. She had a 2nd CAT scan done because there was consideration for whether she needed a urologic procedure that reports decompression of the [id number] right-sided hydronephrosis and a mild degree of right urinary system dilatation is noted. She reports still feeling feverish and reports that she still has right flank pain, but it is improved. PAST MEDICAL HISTORY: Notable for history of hypertension. SURGICAL HISTORY: Notable for the recent hysterectomy. FAMILY HISTORY: She reports is negative. SOCIAL HISTORY: She is . She lives with her . She has 2 children, 16 and 22. She is originally from [place]. There is no history of recent travel. She has no sick contacts. REVIEW OF SYSTEMS: Her vomiting has resolved. She reports still feeling feverish. She has had no diarrhea. She has continued flank pain. MEDICATIONS: At home is Hyzaar 50/12.5. PHYSICAL EXAMINATION: General: She is awake and alert. She is a pleasant woman in no acute distress. She is lying comfortably in bed. Vital Signs: Her maximum temperature is 103, current temperature 100.1, pulse 125, blood pressure 112/53, respiratory rate of 18. HEENT: She is normocephalic. Her eyes are anicteric. She has no thrush or pharyngitis. Neck: Supple. Lungs: Clear to auscultation. Heart: Regular rate and rhythm. Abdomen: She has right CVA tenderness to palpation. Her abdomen is without distention. She has suprapubic discomfort as well. Extremities: Without edema. Skin: She has no rash. DIAGNOSTIC DATA: White count on admission was 18, repeat this morning is 15, hemoglobin 12.6, platelets 181, BUN 11, creatinine 0.8, AST 54, ALT 55, alkaline phosphatase 88, lactic acid 2.6, repeat 1.6. Urinalysis has 1+ leukocytes with 33 white cells. Blood cultures are growing 4/4 bottles are growing gram-negative bacilli. Urine culture is growing nonlactose fermenting gram-negative rods. In summary, this is a young woman with sepsis secondary to gram-negative bacteremia secondary to UTI and kidney stone. Urologic consult has been called. She has no history of resistant organisms so would treat her at this time with piperacillin, tazobactam while awaiting results of her cultures. She has so far received ceftriaxone and Meropenem. Case was discussed with the hospitalist. Alina [id number]
[2019-03-31] MEDS: DEXTROSE 5%-0.45% SALINE 1,000 ML IV SCH (21:15)
--- NOTE | 2019-03-31 23:04 | PN ---
Progress Note, Physician History of Present Illness: Pt still w/ vomiting and also complaining of a SALVADOR - Current Medication List Current Medications: Active Medications Acetaminophen (Tylenol -) 650 mg PO Q8H PRN PRN Reason: PAIN LEVEL 1-5 Last Admin: 03/31/19 14:48 Dose: 650 mg Heparin Sodium (Porcine) (Heparin -) 5,000 unit SQ TID RITO Last Admin: 03/31/19 21:15 Dose: 5,000 unit Piperacillin Sod/Tazobactam (Sod 4.5 gm/ Dextrose) 100 mls @ 200 mls/hr IVPB Q8H-IV RITO; Protocol Last Admin: 03/31/19 17:18 Dose: 200 mls/hr Dextrose/Sodium Chloride (D5-1/2ns -) 1,000 mls @ 75 mls/hr IV ASDIR RITO Last Admin: 03/31/19 21:15 Dose: Not Given Ondansetron HCl (Zofran -) 4 mg PO Q6H PRN PRN Reason: NAUSEA Last Admin: 03/31/19 09:14 Dose: 4 mg - Objective Vital Signs: Vital Signs Temperature 97.8 F 03/31/19 19:47 Pulse Rate 63 03/31/19 19:47 Respiratory Rate 20 03/31/19 20:12 Blood Pressure 122/75 03/31/19 19:47 O2 Sat by Pulse Oximetry (%) 96 03/31/19 20:12 Cardiovascular: Yes: WNL, Regular Rate and Rhythm Respiratory: Yes: WNL, Regular, CTA Bilaterally Gastrointestinal: Yes: WNL, Normal Bowel Sounds, Soft Extremities: Yes: WNL Edema: No Labs: CBC, BMP 03/31/19 07:45 03/31/19 07:45 Problem List - Problems (1) Elevated liver enzymes Assessment/Plan: HIDA scan did not show acute cholecystitis but possible dyskinesia ?chronic cholecystitis Cont to trend LFT's As per GI Surgical consult Code(s): R74.8 - ABNORMAL LEVELS OF OTHER SERUM ENZYMES (2) Gram-negative bacteremia Assessment/Plan: BC (+) nonlactose fermenting Gnb/Ecoli Repeat BC remain negative WBC now normal Cont IV zosyn Code(s): R78.81 - BACTEREMIA (3) Kidney stone Code(s): N20.0 - CALCULUS OF KIDNEY
[2019-04-01] MEDS ORDERED: DEXTROSE 5%-WATER 100 ML IVPB ONE ×3 (01:16→18:14)
[2019-04-01] MEDS ORDERED: PIPERACILLIN/TAZOBACTAM 4.5 GM VIAL IVPB ONE ×3 (01:16→18:12)
[2019-04-01] MEDS: PIPERACILLIN/TAZOB 4.5 GM 4.5 GM in DEXTROSE 5%-WATER 100 ML IVPB SCH ×3 (01:20→18:42)
[2019-04-01] MEDS: HEPARIN NA (PORCINE) 5,000 UNITS/ML 1ML VIAL SQ SCH ×3 (06:07→21:16)
[2019-04-01 07:56] LABS: ALBUMIN 2.8 g/dl (3.4-5.0); BILIRUBIN,TOTAL 0.5 mg/dL (0.2-1); BLOOD UREA NITROGEN 5.8 mg/dL (7-18); CALCIUM 8.7 mg/dL (8.5-10.1); CREATININE 0.6 mg/dL (0.55-1.3); POTASSIUM 3.9 mmol/L (3.5-5.1); TOT PROT 6.8 g/dl (6.4-8.2)
--- NOTE | 2019-04-01 12:37 | PN ---
Progress Note (short form) - Note Progress Note: surgery 43f admitted for e.coli uti, kidney stones, e.coli bacteremia, developed ruq pain, n/v, elevated lfts. u/s shows no stones in gb. ct shows non inflamed gb. hida shows filling of gb in 20 minutes but gb remains distended at end of test pt now pain free. abd- soft, nt plan- HIDA rules out acute cholecystitis or chronic cholecystitis. unlikely biliary dyskinesia and would need a cck hida to evaluate this outpt unlikely problem. unclear source of elevated lfts, ?sepsis. no indication for inpatient cholecystectomy and gb not source of pain. If evidence of choledocholithiasis found by gi service (unlikely-no stones in gb, normal cbd) would consider cholecystectomy but only if choledocholithiasis documented.
[2019-04-01] MEDS: ACETAMINOPHEN 325 MG TABLET (FP) PO PRN (13:48)
--- NOTE | 2019-04-01 14:33 | CONS ---
DATE OF CONSULTATION: 04/01/2019 REASON FOR CONSULTATION: Right upper quadrant pain, abnormal HIDA. REFERRING PROVIDER: Durga Schmitt MD BRIEF HISTORY: This is a 43-year-old female who was admitted to [facility] with kidney stones, urinary tract infection, and E. coli bacteremia which matched the E. coli in her urine. While in the hospital she developed abdominal pain in the right upper quadrant, nausea, vomiting, and mildly elevated liver function tests. She had an ultrasound done of her gallbladder which showed no stones but that the gallbladder was contracted. She had a HIDA scan done which showed rapid filling of her gallbladder, but the gallbladder was noted to be distended by the finishing wire sawyer toward the end of the test. He then opined that this could be biliary dyskinesia. The patient also had a CAT scan of the abdomen and pelvis done twice, once on the and one on the , which showed likely passage of kidney stones on the right side. The gallbladder was unremarkable on these studies. A request was made by Dr. Schmitt for surgical evaluation. It was felt that the mildly elevated liver function tests were not biliary in nature per Dr. Schmitt because the bile duct was noted to not be dilated and there were no gallstones. The patient currently feels well. She is now pain-free, asking for food. PAST MEDICAL HISTORY: Significant for hypertension. PAST SURGICAL HISTORY: Includes a hysterectomy. SOCIAL HISTORY: Negative for alcohol, negative for tobacco. HOME MEDICATIONS: Include losartan. REVIEW OF SYSTEMS: General: Denies fatigue or malaise. Cardiac: Denies chest pain or palpitations. Respiratory: Denies shortness of breath or wheeze. Gastrointestinal: As in HPI. Currently no nausea, no vomiting. She was having right upper quadrant pain originally. Genitourinary: Denies dysuria. Musculoskeletal: Denies joint pain. Psychiatric: Denies anxiety, depression, hearing voices. PHYSICAL EXAMINATION: General: This is a well-developed, well-nourished 43-year-old female in no distress. Vital Signs: She is afebrile, has been since March 28. On arrival, she had a fever of 103. HEENT: Her head is normocephalic. Her sclerae are anicteric. Neck: Supple. Chest: Clear. Abdomen: Soft, nontender, nondistended. She has well-healed surgical scar. She has no obvious hernias. Extremities: No edema. LABORATORY: Her white blood cell count is normal at 7.8. It was 18.1 on arrival. Her chemistries, currently her AST is 71. It was as high as 139. It was 54 on arrival. Her ALT is 146. It was normal on arrival. It was as high as 193. Her alkaline phosphatase is elevated at 218, which was normal on arrival. Her lipase was normal on arrival. IMAGING: As listed in HPI. ASSESSMENT: This is a 43-year-old female admitted for urinary tract infection, sepsis, Escherichia coli bacteremia. She has CAT scan evidence to support that a stone passed on the right side. She has developed right upper quadrant pain which has resolved, and an elevation of her liver function tests, which has not completely resolved. The compensation programs manager felt that since she has no gallstones and her bile duct is normal, that this is not choledocholithiasis. HIDA scan shows that the gallbladder remained distended after rapid filling, and therefore this is possibly abnormal and request was made for my opinion. Clinically, the patient appears to be well. Her HIDA scan showed rapid filling of the gallbladder in only 10 minutes, which would seem to indicate an extremely healthy gallbladder. This would rule out acute cholecystitis as well as chronic cholecystitis. The finishing wire sawyer then opines that since the gallbladder remained distended, it is possible that she may have biliary dyskinesia. As we know, biliary dyskinesia is an unusual condition that is controversial and is a diagnosis of exclusion. It suggests that the gallbladder may have inability to completely empty. In order to test for this, you would require a HIDA where the hormone cholecystokinin was given, which was not done. The current HIDA that she had is not diagnostic for this unlikely condition. In either event, she currently has no pain. The gallbladder is not the source of her pain, which she no longer has. The gallbladder could not be the source directly of the elevated liver function tests. These are probably from sepsis. The other possibility would be choledocholithiasis, but the compensation programs manager feels this is unlikely. At this point, there is no indication for cholecystectomy. If the patient wishes outpatient workup for persistent biliary symptoms, could consider a CCK HIDA. I suspect, though, that this will be a one-time event. If, however, further workup is done and it is documented that she actually does have choledocholithiasis, then would consider cholecystectomy this admission. At this point there is no indication for cholecystectomy. I will be available. DO IMAN GREEN/[id number]
--- NOTE | 2019-04-01 18:27 | PN ---
Physical Exam: SUBJECTIVE: Patient seen and examined; abdominal pain improved. Spoke with family and HCP regarding psych meds. Nursing also informed me that this PM she was having a headache that is acute on chronic in nature. Will discuss with GI regarding need for potential MRCP, etc. due to the HIDA revealing no acute need for surgical intervention per sgy. 10 sys ROS done and negative aside from HPI OBJECTIVE: Vital Signs Period Temp Pulse Resp BP Sys/Swan Pulse Ox Last 24 Hr 97.6 F-98.5 F 60-78 18-20 111-136/62-78 96-96 GENERAL: The patient is awake, alert, and fully oriented, in no acute distress. HEAD: Normal with no signs of trauma. EYES: PERRL, extraocular movements intact, sclera anicteric, conjunctiva clear. No ptosis. ENT: Ears normal, nares patent, oropharynx clear without exudates, moist mucous membranes. NECK: Trachea midline, full range of motion, supple. LUNGS: Breath sounds equal, clear to auscultation bilaterally, no wheezes, no crackles, no accessory muscle use. HEART: Regular rate and rhythm, S1, S2 without murmur, rub or gallop. ABDOMEN: Soft, nontender, nondistended, normoactive bowel sounds, no guarding, no rebound, no hepatosplenomegaly, no masses. EXTREMITIES: 2+ pulses, warm, well-perfused, no edema. NEUROLOGICAL: Cranial nerves II through XII grossly intact. Normal speech, gait not observed. PSYCH: Normal mood, normal affect. SKIN: Warm, dry, normal turgor, no rashes or lesions noted Laboratory Results - last 24 hr 04/01/19 06:17 Sodium 139 Potassium 3.9 Chloride 106 Carbon Dioxide 26 Anion Gap 7 L BUN 5.8 L Creatinine 0.6 Est GFR (CKD-EPI)AfAm 129.39 Est GFR (CKD-EPI)NonAf 111.64 Random Glucose 85 Calcium 8.7 Total Bilirubin 0.5 AST 71 H ALT 146 H Alkaline Phosphatase 218 H Total Protein 6.8 Albumin 2.8 L Active Medications Generic Name Dose Route Start Last Admin Trade Name Freq PRN Reason Stop Dose Admin Acetaminophen 650 mg 03/29/19 16:18 04/01/19 13:48 Tylenol - PO 650 mg Q8H PRN Administration PAIN LEVEL 1-5 Heparin Sodium (Porcine) 5,000 unit 03/28/19 06:00 04/01/19 13:49 Heparin - SQ 5,000 unit TID RITO Administration Piperacillin Sod/Tazobactam 100 mls @ 200 mls/hr 03/28/19 18:00 04/01/19 11: 01 Sod 4.5 gm/ Dextrose IVPB 200 mls/hr Q8H-IV RITO Administration Protocol Dextrose/Sodium Chloride 1,000 mls @ 75 mls/hr 03/30/19 19:45 03/31/19 21:15 D5-1/2ns - IV Not Given ASDIR RITO Ondansetron HCl 4 mg 03/27/19 21:59 03/31/19 09:14 Zofran - PO 4 mg Q6H PRN Administration NAUSEA Microbiology reviewed; NGTD on the 03/29 blood cultures. Ucx reveiwed HIDA reviewed CT reviewed Consults reviewed ASSESSMENT/PLAN: Patient presents with continued transaminitis with second cultures not growing anything. Continues on abx. She has a headache which is chronic. Giving Mg infusion; avoiding APAP containing products so will give a 1x dose of ketorolac IV. She has no red flag signs or symptoms or neuro changes. Problems include: -Sepsis, improved. Likely secondary to urosepsis with the stone. Seen by urology who recommended continuing abx and monitoring. -Gram negative bacteremia, improved -Abdominal pain (negative HIDA, FU surgical recs with no acute indication for cholecystectomy) -Transamninitis (trending CMP, consult GI. Consider further diagnostics but will defer to GI. Broad ddx up to and including sepsis. Bili is normal. Monitor). -Hypoalbuminemia (nonurgent prealbumin check) -Headache (1 dose, mg infusion, avoid APAP given LFTs, consider neuro referral and further imaging if recurrs). Full Code Visit type - Emergency Visit Emergency Visit: Yes ED Registration Date: 03/27/19 Care time: The patient presented to the Emergency Department on the above date and was hospitalized for further evaluation of their emergent condition. - New Patient This patient is new to me today: Yes Date on this admission: 04/01/19 - Critical Care Critical Care patient: No
[2019-04-01] MEDS ORDERED: KETOROLAC TROMETHAMINE 15 MG/ML VIAL IVPUSH ONE (18:35)
[2019-04-01] MEDS: DEXTROSE 5%-0.45% SALINE 1,000 ML IV SCH ×2 (18:41→21:18)
[2019-04-01] MEDS ORDERED: MAGNESIUM SULF 50% (8.12 MEQ/2 ML-1 GM VIAL) IVPB ONE (18:45)
[2019-04-01 19:04] LABS: BASO % 0.4 % (0-2.0); EOS % 1.4 % (0-4.5); HEMATOCRIT 37.7 % (32.4-45.2); HEMOGLOBIN 12.6 GM/dL (10.7-15.3); LYMPH % 38.9 % (8-40); MCH 30.8 pg (25.7-33.7); MCHC 33.5 g/dl (32.0-36.0); MEAN CELL VOLUME 92.2 fl (80-96); MEAN PLT VOLUME 8.7 fl (7.5-11.1); MONO % 12.2 % (3.8-10.2); NEUT % 47.1 % (42.8-82.8); PLATELET COUNT 267 K/MM3 (134-434); RBC 4.09 M/mm3 (3.60-5.2); RDW 12.8 % (11.6-15.6); WHITE BLOOD COUNT 6.7 K/mm3 (4.0-10.0)
[2019-04-01 19:35] LABS: ALBUMIN 3.1 g/dl (3.4-5.0); BILIRUBIN,TOTAL 0.4 mg/dL (0.2-1); BLOOD UREA NITROGEN 7.4 mg/dL (7-18); CALCIUM 9.4 mg/dL (8.5-10.1); CREATININE 0.6 mg/dL (0.55-1.3); POTASSIUM 3.8 mmol/L (3.5-5.1); TOT PROT 7.7 g/dl (6.4-8.2)
[2019-04-01 19:53] LABS: ERYTHROCYTE SEDIMENTATION RATE 85 mm/hr (0-20)
[2019-04-02] MEDS ORDERED: PIPERACILLIN/TAZOBACTAM 4.5 GM VIAL IVPB ONE ×2 (02:42→10:09)
[2019-04-02] MEDS ORDERED: DEXTROSE 5%-WATER 100 ML IVPB ONE ×2 (02:42→10:09)
[2019-04-02] MEDS: PIPERACILLIN/TAZOB 4.5 GM 4.5 GM in DEXTROSE 5%-WATER 100 ML IVPB SCH ×2 (02:56→11:00)
[2019-04-02] MEDS: HEPARIN NA (PORCINE) 5,000 UNITS/ML 1ML VIAL SQ SCH ×3 (06:03→21:36)
[2019-04-02 07:59] LABS: ALBUMIN 2.8 g/dl (3.4-5.0); BILIRUBIN,TOTAL 0.6 mg/dL (0.2-1); BLOOD UREA NITROGEN 8.5 mg/dL (7-18); CALCIUM 8.7 mg/dL (8.5-10.1); CREATININE 0.6 mg/dL (0.55-1.3); MAGNESIUM 2.4 mg/dL (1.8-2.4); POTASSIUM 3.4 mmol/L (3.5-5.1); TOT PROT 7.1 g/dl (6.4-8.2)
--- NOTE | 2019-04-02 12:34 | PN ---
Physical Exam: SUBJECTIVE: Patient seen and examined OBJECTIVE: Vital Signs Period Temp Pulse Resp BP Sys/Swan Pulse Ox Last 24 Hr 97.7 F-98.3 F 59-78 18-20 111-126/62-72 98 GENERAL: The patient is awake, alert, and fully oriented, in no acute distress. HEAD: Normal with no signs of trauma. EYES: PERRL, extraocular movements intact, sclera anicteric, conjunctiva clear. No ptosis. ENT: Ears normal, nares patent, oropharynx clear without exudates, moist mucous membranes. NECK: Trachea midline, full range of motion, supple. LUNGS: Breath sounds equal, clear to auscultation bilaterally, no wheezes, no crackles, no accessory muscle use. HEART: Regular rate and rhythm, S1, S2 without murmur, rub or gallop. ABDOMEN: Soft, nontender, nondistended, normoactive bowel sounds, no guarding, no rebound, no hepatosplenomegaly, no masses. EXTREMITIES: 2+ pulses, warm, well-perfused, no edema. NEUROLOGICAL: Cranial nerves II through XII grossly intact. Normal speech, gait not observed. PSYCH: Normal mood, normal affect. SKIN: Warm, dry, normal turgor, no rashes or lesions noted Laboratory Results - last 24 hr 04/01/19 04/01/19 04/02/19 18:42 18:42 06:48 WBC 6.7 RBC 4.09 Hgb 12.6 Hct 37.7 MCV 92.2 MCH 30.8 MCHC 33.5 RDW 12.8 Plt Count 267 MPV 8.7 Absolute Neuts (auto) 3.2 Neutrophils % 47.1 D Lymphocytes % 38.9 D Monocytes % 12.2 H Eosinophils % 1.4 Basophils % 0.4 Nucleated RBC % 0 ESR 85 H Sodium 135 L 136 Potassium 3.8 3.4 L Chloride 102 104 Carbon Dioxide 27 26 Anion Gap 6 L 6 L BUN 7.4 8.5 Creatinine 0.6 0.6 Est GFR (CKD-EPI)AfAm 129.39 129.39 Est GFR (CKD-EPI)NonAf 111.64 111.64 Random Glucose 109 H 86 Calcium 9.4 8.7 Magnesium 2.4 Total Bilirubin 0.4 0.6 GGT 569 H AST 97 H 59 H ALT 166 H 128 H Alkaline Phosphatase 257 H 210 H C-Reactive Protein 4.2 H Total Protein 7.7 7.1 Albumin 3.1 L 2.8 L Active Medications Generic Name Dose Route Start Last Admin Trade Name Elham PRN Reason Stop Dose Admin Acetaminophen 650 mg 03/29/19 16:18 04/01/19 13:48 Tylenol - PO 650 mg Q8H PRN Administration PAIN LEVEL 1-5 Heparin Sodium (Porcine) 5,000 unit 03/28/19 06:00 04/02/19 06:03 Heparin - SQ 5,000 unit TID RITO Administration Piperacillin Sod/Tazobactam 100 mls @ 200 mls/hr 03/28/19 18:00 04/02/19 11: 00 Sod 4.5 gm/ Dextrose IVPB 200 mls/hr Q8H-IV RITO Administration Protocol Dextrose/Sodium Chloride 1,000 mls @ 75 mls/hr 03/30/19 19:45 04/01/19 21:18 D5-1/2ns - IV 75 mls/hr ASDIR RITO Administration Ondansetron HCl 4 mg 03/27/19 21:59 03/31/19 09:14 Zofran - PO 4 mg Q6H PRN Administration NAUSEA ASSESSMENT/PLAN:
--- NOTE | 2019-04-02 13:09 | PN ---
Progress Note (short form) - Note Progress Note: alert no pain today Vital Signs Period Temp Pulse Resp BP Sys/Swan Pulse Ox Last 24 Hr 97.7 F-98.3 F 59-78 18-20 111-126/62-72 98 cor-rrr lungs clear abd soft,nt no cvat, no ruq pain ext no edema CBC, BMP 04/01/19 18:42 04/02/19 06:48 Laboratory Tests 03/30/19 04/02/19 06:20 06:48 GGT 569 H AST 139 H 59 H ALT 165 H 128 H Alkaline Phosphatase 152 H 210 H HIDA negative Microbiology 03/29/19 07:55 Blood - Peripheral Venous Blood Culture - Preliminary NO GROWTH OBTAINED AFTER 96 HOURS, INCUBATION TO CONTINUE FOR 1 DAYS. 03/29/19 07:55 Blood - Peripheral Venous Blood Culture - Preliminary NO GROWTH OBTAINED AFTER 96 HOURS, INCUBATION TO CONTINUE FOR 1 DAYS. 03/27/19 17:30 Blood - Peripheral Venous Blood Culture - Final Non Lactose Fermenting Gnb 03/27/19 13:20 Urine - Urine Clean Catch Urine Culture - Final Escherichia Coli Escherichia Coli#2 03/27/19 17:30 Blood - Peripheral Venous Blood Culture - Final Escherichia Coli a/p ecoli bacteremia and UTI/pyelonephritis-day #6 zosyn switch to ancef-finish 7 days total iv antibiotics plan for po keflex when ready for discharge-500 tid for total 10 days abnl lfts- awaiting GI f/u Problem List - Problems (1) Sepsis Code(s): A41.9 - SEPSIS, UNSPECIFIED ORGANISM Qualifiers: Sepsis type: sepsis due to unspecified organism Sepsis acute organ dysfunction status: unspecified Qualified Code(s): A41.9 - Sepsis, unspecified organism (2) Gram-negative bacteremia Code(s): R78.81 - BACTEREMIA (3) UTI (urinary tract infection) Code(s): N39.0 - URINARY TRACT INFECTION, SITE NOT SPECIFIED Qualifiers: Urinary tract infection type: acute cystitis Hematuria presence: without hematuria Qualified Code(s): N30.00 - Acute cystitis without hematuria (4) Kidney stone Code(s): N20.0 - CALCULUS OF KIDNEY
[2019-04-02] MEDS: CEFAZOLIN 2 GM/D5W 2 GM/50 ML ML IVPB SCH (17:28)
[2019-04-02] MEDS: ACETAMINOPHEN 325 MG TABLET (FP) PO PRN (17:56)
[2019-04-02] MEDS: DEXTROSE 5%-0.45% SALINE 1,000 ML IV SCH (21:36)
[2019-04-03] MEDS: CEFAZOLIN 2 GM/D5W 2 GM/50 ML ML IVPB SCH ×3 (01:06→17:23)
[2019-04-03] MEDS: HEPARIN NA (PORCINE) 5,000 UNITS/ML 1ML VIAL SQ SCH ×2 (05:28→15:19)
--- NOTE | 2019-04-03 08:15 | PN ---
Progress Note, Physician History of Present Illness: GI FOLLOW UP NOTE Patient examined and case discussed with Dr Schmitt Patient states feeling better. Denies nausea, vomiting, abdominal pain, diarrhea, constipation. Patient had HIDA scan with EF which showed slightly distended gallbladder, gallbladder dyskinesia cannot be excluded. Surgical consult was placed, recommendations appreciated. Labs show LFTs beginning to trend down. - Current Medication List Current Medications: Active Medications Acetaminophen (Tylenol -) 650 mg PO Q8H PRN PRN Reason: PAIN LEVEL 1-5 Last Admin: 04/02/19 17:56 Dose: 650 mg Heparin Sodium (Porcine) (Heparin -) 5,000 unit SQ TID RITO Last Admin: 04/03/19 05:28 Dose: 5,000 unit Dextrose/Sodium Chloride (D5-1/2ns -) 1,000 mls @ 75 mls/hr IV ASDIR RITO Last Admin: 04/02/19 21:36 Dose: 75 mls/hr Cefazolin Sodium/Dextrose (Ancef 2 Gm Premixed Ivpb -) 2 gm in 50 mls @ 100 mls /hr IVPB Q8H-IV RITO Last Admin: 04/03/19 01:06 Dose: 100 mls/hr Ondansetron HCl (Zofran -) 4 mg PO Q6H PRN PRN Reason: NAUSEA Last Admin: 03/31/19 09:14 Dose: 4 mg - Objective Vital Signs: Vital Signs Temperature 98.2 F 04/03/19 02:15 Pulse Rate 66 04/03/19 05:00 Respiratory Rate 20 04/03/19 05:00 Blood Pressure 126/69 04/03/19 05:00 O2 Sat by Pulse Oximetry (%) 98 04/02/19 09:00 Constitutional: Yes: No Distress, Calm Eyes: Yes: Conjunctiva Clear HENT: Yes: Atraumatic Cardiovascular: Yes: Regular Rate and Rhythm Respiratory: Yes: Regular, CTA Bilaterally Gastrointestinal: Yes: Normal Bowel Sounds, Soft Neurological: Yes: Alert, Oriented Psychiatric: Yes: Alert, Oriented Labs: CBC, BMP 04/01/19 18:42 04/02/19 06:48 <Zahira Mcmanus - Last Filed: 04/03/19 08:10> History of Present Illness: Patient asymptomatic - Current Medication List Current Medications: Active Medications Acetaminophen (Tylenol -) 650 mg PO Q8H PRN PRN Reason: PAIN LEVEL 1-5 Last Admin: 04/02/19 17:56 Dose: 650 mg Heparin Sodium (Porcine) (Heparin -) 5,000 unit SQ TID RITO Last Admin: 04/03/19 05:28 Dose: 5,000 unit Dextrose/Sodium Chloride (D5-1/2ns -) 1,000 mls @ 75 mls/hr IV ASDIR RITO Last Admin: 04/02/19 21:36 Dose: 75 mls/hr Cefazolin Sodium/Dextrose (Ancef 2 Gm Premixed Ivpb -) 2 gm in 50 mls @ 100 mls /hr IVPB Q8H-IV RITO Last Admin: 04/03/19 09:34 Dose: 100 mls/hr Ondansetron HCl (Zofran -) 4 mg PO Q6H PRN PRN Reason: NAUSEA Last Admin: 03/31/19 09:14 Dose: 4 mg - Objective Vital Signs: Vital Signs Temperature 98.2 F 04/03/19 02:15 Pulse Rate 66 04/03/19 05:00 Respiratory Rate 20 04/03/19 05:00 Blood Pressure 126/69 04/03/19 05:00 O2 Sat by Pulse Oximetry (%) 98 04/02/19 09:00 Labs: CBC, BMP 04/01/19 18:42 04/02/19 06:48 <Durga Schmitt - Last Filed: 04/03/19 12:55> Problem List - Problems (1) RUQ abdominal pain Assessment/Plan: >HIDA scan with EF shows chronic cholecystitis vs gallbladder dyskinesia >Surgical consult was placed, no need for inpatient cholecystectomy >continue IV antibiotics Code(s): R10.11 - RIGHT UPPER QUADRANT PAIN (2) Elevated liver enzymes Assessment/Plan: >LFTs beginning to show downtrend >initial elevation of LFTs possibly 2/2 sepsis, normal CBD on diagnostic testing shows choledocolithiasis as unlikely source of elevation >patient will follow up as outpatient with Dr Schmitt for further work-up and evaluation Code(s): R74.8 - ABNORMAL LEVELS OF OTHER SERUM ENZYMES <Zahira Mcmanus - Last Filed: 04/03/19 08:10> - Problems (1) RUQ abdominal pain Assessment/Plan: R> further w/u of abnormal liver enzymes as an outpatient no evidence of cholecystitis at this time made aware to follow up recall as necessary Code(s): R10.11 - RIGHT UPPER QUADRANT PAIN (2) Elevated liver enzymes Code(s): R74.8 - ABNORMAL LEVELS OF OTHER SERUM ENZYMES (3) Diarrhea Code(s): R19.7 - DIARRHEA, UNSPECIFIED <Durga Schmitt - Last Filed: 04/03/19 12:55>
--- NOTE | 2019-04-03 15:41 | PN ---
Progress Note (short form) - Note Progress Note: alert no pain today feels well Vital Signs Period Temp Pulse Resp BP Sys/Swan Pulse Ox Last 24 Hr 98 F-98.2 F 61-70 18-20 108-138/59-77 98 cor-rrr lungs clear abd-soft, nt ext-no edema CBC, BMP 04/01/19 18:42 04/02/19 06:48 Microbiology 03/29/19 07:55 Blood - Peripheral Venous Blood Culture - Final NO GROWTH AFTER 5 DAYS INCUBATION 03/29/19 07:55 Blood - Peripheral Venous Blood Culture - Final NO GROWTH AFTER 5 DAYS INCUBATION 03/27/19 17:30 Blood - Peripheral Venous Blood Culture - Final Non Lactose Fermenting Gnb 03/27/19 13:20 Urine - Urine Clean Catch Urine Culture - Final Escherichia Coli Escherichia Coli#2 03/27/19 17:30 Blood - Peripheral Venous Blood Culture - Final Escherichia Coli a/p ecoli bacteremia and UTI/pyelonephritis-day #7 antibiotics- no objection to switch to po keflex 500 mg po tid for 3 days abnl lfts- GI note reviewed, for outpt f/u Problem List - Problems (1) Sepsis Code(s): A41.9 - SEPSIS, UNSPECIFIED ORGANISM Qualifiers: Sepsis type: sepsis due to unspecified organism Sepsis acute organ dysfunction status: unspecified Qualified Code(s): A41.9 - Sepsis, unspecified organism (2) Gram-negative bacteremia Code(s): R78.81 - BACTEREMIA (3) UTI (urinary tract infection) Code(s): N39.0 - URINARY TRACT INFECTION, SITE NOT SPECIFIED Qualifiers: Urinary tract infection type: acute cystitis Hematuria presence: without hematuria Qualified Code(s): N30.00 - Acute cystitis without hematuria (4) Kidney stone Code(s): N20.0 - CALCULUS OF KIDNEY
[2019-04-03 17:40] VITALS: BP 116/67; PULSE 66; TEMP 98
[2019-04-03 18:01] VITALS: BMI 25.4
[2019-04-03 20:11] LABS: HEP B CORE AB, TOT Negative (Negative)
== END 2019-04-03 19:09 | disposition home or self-care (01) | DRG 720 ==
LOC: JER 12:10 → JERBED 18:48 → J8W 03-28 00:03
PROVIDERS: ADMIT Internal Medicine; ATTEND Internal Medicine
DX: A41.50 Gram-negative sepsis, unspecified (principal); N39.0 Urinary tract infection, site not specified; N13.9 Obstructive and reflux uropathy, unspecified; R50.9 Fever, unspecified; N13.6 Pyonephrosis; I10 Essential (primary) hypertension; B96.20 Unspecified Escherichia coli [E. coli] as the cause of diseases classified elsewhere; R10.11 Right upper quadrant pain; R74.0 Nonspecific elevation of levels of transaminase and lactic acid dehydrogenase [LDH]; E88.09 Other disorders of plasma-protein metabolism, not elsewhere classified; R51 Headache
CPT/HCPCS: 36415; 74176-TC; 76705-TC; 76856-TC; 78226-TC; 80053; 81003; 82977; 83605; 83690; 83735; 83993; 84703; 85025; 85027; 85651; 86140; 86704; 86705; 86706; 86707; 87040; 87086; 87186; 93005; 93010; 97116-GP; 97161-GP; 99285-25; A9537; J0131; J1644; J7030